=== PATIENT | female | born 1975 | race Caucasian/White ===

== ENCOUNTER 2016-10-06 18:47 | Emergency (ER) | payer MEDICARE, MEDICAID ==
[2016-10-06] MEDS ORDERED: LORazepam 2 MG/ML MDV IM ONE (19:56)
[2016-10-06] MEDS ORDERED: Acetaminophen 325 MG Tab PO ONE (21:14)
[2016-10-06] MEDS: Ondansetron 4 MG Tab.DIS PO ONE ×2 (21:20→22:20)
--- NOTE | 2016-10-07 00:42 | EDM.PDOCBH ---
ED HPI GENERAL MEDICAL PROBLEM - General Chief Complaint: Behavioral/Psych Stated Complaint: WITHDRAWAL FROM ALCOHOL/FEELING SUICIDAL Time Seen by Provider: 10/06/16 19:54 Source of Information: Reports: Patient History Limitations: Reports: No Limitations - History of Present Illness INITIAL COMMENTS - FREE TEXT/NARRATIVE: This patient comes in complaining of depression and alcohol abuse. She has a long history of depression and is off of medications. She quit her job recently and after that started drinking more. She said that she drinks to help her feel less depressed and to ease the pain from her musculoskeletal issues she said she has fibromyalgia and Ellers Danlos syndrome she said that when she drinks it seems to help for a little while but then just makes her feel worse. Her last drink was yesterday. She's been hospitalized for mental issues in the past. She thinks she wants to go to detox. 2 days ago she was feeling really depressed and she was sitting with her boyfriend's gun on her lap and she was thinking about shooting herself. Her boyfriend took the gun away from her. She said she didn't do it because of her children. She had been drinking at that time. Presently she does not feel like she is suicidal. Presently she feels very shaky and wants help with this. She hasn't eaten in 2 days. 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 , Other OB/BYN History: hvp- leap procedure Musculoskeletal History: Reports: Connective Tissue Disease, Fibromyalgia Neurological History: Reports: Migraines Psychiatric History: Reports: Anxiety, Depression, Psych Hospitalization(s), PTSD, Suicidal Ideation Endocrine/Metabolic History: Reports: Obesity/BMI 30+ Hematologic History: Reports: Anemia - Infectious Disease History Infectious Disease History: Reports: C-Difficile - Past Surgical History HEENT Surgical History: Reports: Tonsillectomy Other HEENT Surgeries/Procedures: adnoids GI Surgical History: Reports: Bariatric Procedure Female Surgical History: Reports: Tubal Ligation, Other (See Below) Musculoskeletal Surgical History: Reports: Joint Replacement, Knee Replacement, Other (See Below) Social & Family History - Family History Family Medical History: Noncontributory - Tobacco Use Smoking Status *Q: Current Some Day Smoker Years of Tobacco use: 20 Packs/Tins Daily: 0 Used Tobacco, but Quit: No Second Hand Smoke Exposure: No - Caffeine Use Caffeine Use: Reports: Coffee, Soda, Tea Other Caffeine Use: not daily - Alcohol Use Days Per Week of Alcohol Use: 1 Number of Drinks Per Day: 1 Total Drinks Per Week: 1 Date of Last Drink: 10/05/16 - Recreational Drug Use Recreational Drug Use: No ED ROS GENERAL - Review of Systems Review Of Systems: See Below Constitutional: Reports: No Symptoms HEENT: Reports: No Symptoms Respiratory: Reports: No Symptoms Cardiovascular: Reports: No Symptoms Endocrine: Reports: No Symptoms GI/Abdominal: Reports: No Symptoms : Reports: Other (She thinks she might have a urinary tract infection) Musculoskeletal: Reports: No Symptoms Skin: Reports: No Symptoms Neurological: Reports: No Symptoms Psychiatric: Reports: Depression Hematologic/Lymphatic: Reports: No Symptoms Immunologic: Reports: No Symptoms ED EXAM, BEHAVIORAL HEALTH - Physical Exam Exam: See Below Exam Limited By: No Limitations General Appearance: Alert, Mild Distress (At times she becomes tearful), Obese Eye Exam: Bilateral Eye: Normal Inspection Ears: Normal External Exam Nose: Normal Inspection Throat/Mouth: Normal Inspection Head: Atraumatic Neck: Normal Inspection Respiratory/Chest: Lungs Clear Cardiovascular: Regular Rate, Rhythm, No Murmur GI/Abdominal: Soft, Non-Tender Back Exam: Normal Inspection Extremities: Normal Inspection Neurological: Alert, CN II-XII Intact, No Motor/Sensory Deficits Psychiatric: Depressed Mood Skin Exam: Warm, Dry COURSE, BEHAVIORAL HEALTH COMP - Course Vital Signs: Last Vital Signs Temp 37.2 C 10/07/16 00:34 Pulse 78 10/07/16 00:34 Resp 14 10/07/16 00:34 BP 111/69 10/07/16 00:34 Pulse Ox 100 10/07/16 00:34 Orders, Labs, Meds: Laboratory Tests 10/06/16 10/06/16 10/06/16 Range/Units 19:55 19:55 19:55 WBC 6.0 (4.5-11.0) K/uL RBC 4.36 (3.30-5.50) M/uL Hgb 10.2 L (12.0-15.0) g/dL Hct 33.2 L (36.0-48.0) % MCV 76 L (80-98) fL MCH 23 L (27-31) pg MCHC 31 L (32-36) % Plt Count 178 (150-400) K/uL Neut % (Auto) 77 H (36-66) % Lymph % (Auto) 11 L (24-44) % [place] % (Auto) 11 H (2-6) % Eos % (Auto) 0 L (2-4) % Baso % (Auto) 1 (0-1) % Sodium 136 L (140-148) mmol/L Potassium 3.8 (3.6-5.2) mmol/L Chloride 100 (100-108) mmol/L Carbon Dioxide 24 (21-32) mmol/L Anion Gap 15.8 H (5.0-14.0) mmol/L BUN 5 L (7-18) mg/dL Creatinine 0.7 (0.6-1.0) mg/dL Est Cr Clr Drug Dosing TNP Estimated GFR (MDRD) > 60 (>60) Glucose 77 (74-106) mg/dL Calcium 7.9 L (8.5-10.1) mg/dL Total Bilirubin 0.9 (0.2-1.0) mg/dL AST 104 H D (15-37) U/L ALT 59 D (12-78) U/L Alkaline Phosphatase 105 (46-116) U/L Total Protein 6.7 (6.4-8.2) g/dL Albumin 3.1 L (3.4-5.0) g/dL Globulin 3.6 H (2.3-3.5) g/dL Albumin/Globulin Ratio 0.9 L (1.2-2.2) Urine Color Urine Appearance Urine pH (4.5-8.0) Ur Specific Norris (1.008-1.030) Urine Protein (NEGATIVE) mg/dL Urine Glucose (UA) (NEGATIVE) mg/dL Urine Ketones (NEGATIVE) mg/dL Urine Occult Blood (NEGATIVE) Urine Nitrite (NEGATIVE) Urine Bilirubin (NEGATIVE) Urine Urobilinogen (NORMAL) mg/dL Ur Leukocyte Esterase (NEGATIVE) Urine RBC (0-5) Urine WBC (0-5) Ur Epithelial Cells Amorphous Sediment Urine Bacteria Urine Mucus Urine Opiates Screen (NEGATIVE) Ur Oxycodone Screen (NEGATIVE) Urine Methadone Screen (NEGATIVE) Ur Propoxyphene Screen (NEGATIVE) Ur Barbiturates Screen (NEGATIVE) Ur Tricyclics Screen (NEGATIVE) Ur Phencyclidine Scrn (NEGATIVE) Ur Amphetamine Screen (NEGATIVE) U Methamphetamines Scrn (NEGATIVE) Urine MDMA Screen (NEGATIVE) U Benzodiazepines Scrn (NEGATIVE) U Cocaine Metab Screen (NEGATIVE) U Marijuana (THC) Screen (NEGATIVE) Ethyl Alcohol 20 mg/dL 10/06/16 10/06/16 Range/Units 20:08 20:08 WBC (4.5-11.0) K/uL RBC (3.30-5.50) M/uL Hgb (12.0-15.0) g/dL Hct (36.0-48.0) % MCV (80-98) fL MCH (27-31) pg MCHC (32-36) % Plt Count (150-400) K/uL Neut % (Auto) (36-66) % Lymph % (Auto) (24-44) % [place] % (Auto) (2-6) % Eos % (Auto) (2-4) % Baso % (Auto) (0-1) % Sodium (140-148) mmol/L Potassium (3.6-5.2) mmol/L Chloride (100-108) mmol/L Carbon Dioxide (21-32) mmol/L Anion Gap (5.0-14.0) mmol/L BUN (7-18) mg/dL Creatinine (0.6-1.0) mg/dL Est Cr Clr Drug Dosing Estimated GFR (MDRD) (>60) Glucose (74-106) mg/dL Calcium (8.5-10.1) mg/dL Total Bilirubin (0.2-1.0) mg/dL AST (15-37) U/L ALT (12-78) U/L Alkaline Phosphatase (46-116) U/L Total Protein (6.4-8.2) g/dL Albumin (3.4-5.0) g/dL Globulin (2.3-3.5) g/dL Albumin/Globulin Ratio (1.2-2.2) Urine Color Yellow Urine Appearance Cloudy Urine pH 6.0 (4.5-8.0) Ur Specific Norris 1.020 (1.008-1.030) Urine Protein 30 H (NEGATIVE) mg/dL Urine Glucose (UA) Normal (NEGATIVE) mg/dL Urine Ketones 15 H (NEGATIVE) mg/dL Urine Occult Blood Moderate (NEGATIVE) Urine Nitrite Negative (NEGATIVE) Urine Bilirubin Negative (NEGATIVE) Urine Urobilinogen 1 (NORMAL) mg/dL Ur Leukocyte Esterase Negative (NEGATIVE) Urine RBC 5-10 H (0-5) Urine WBC 5-10 H (0-5) Ur Epithelial Cells Moderate Amorphous Sediment Few Urine Bacteria Rare Urine Mucus Few Urine Opiates Screen Negative (NEGATIVE) Ur Oxycodone Screen Negative (NEGATIVE) Urine Methadone Screen Negative (NEGATIVE) Ur Propoxyphene Screen Negative (NEGATIVE) Ur Barbiturates Screen Negative (NEGATIVE) Ur Tricyclics Screen Negative (NEGATIVE) Ur Phencyclidine Scrn Negative (NEGATIVE) Ur Amphetamine Screen Negative (NEGATIVE) U Methamphetamines Scrn Negative (NEGATIVE) Urine MDMA Screen Negative (NEGATIVE) U Benzodiazepines Scrn Negative (NEGATIVE) U Cocaine Metab Screen Negative (NEGATIVE) U Marijuana (THC) Screen Negative (NEGATIVE) Ethyl Alcohol mg/dL Medications Discontinued Medications Generic Name Dose Route Start Last Admin Trade Name Joe PRN Reason Stop Dose Admin Acetaminophen 650 mg 10/06/16 21:14 10/06/16 21:21 Tylenol PO 10/06/16 21:15 650 mg NOW ONE Administration Lorazepam 2 mg 10/06/16 19:56 10/06/16 20:07 Ativan IM 10/06/16 19:57 2 mg ONETIME ONE Administration Ondansetron HCl 8 mg 10/06/16 21:15 10/06/16 22:20 Zofran Odt PO 10/06/16 21:16 Not Given ONETIME ONE Re-Assessment/Re-Exam: See the crisis counselor's evaluation. The counselor felt like she warranted inpatient hospitalization. The patient is willing to go voluntarily so 72 hour hold was not completed Departure - Departure Time of Disposition: 00:44 Disposition: DC/Tfer to Psych Hosp/Unit 65 Clinical Impression: Depressive disorder, Alcohol abuse - Discharge Information Referrals: Adeola Brunner PA [Primary Care Provider] - Forms: ED Department Discharge
[2016-10-07] MEDS ORDERED: Acetaminophen 325 MG Tab PO PRN (02:37)
[2016-10-07 07:51] VITALS: BP 89/55
== END 2016-10-07 09:11 ==
LOC: JP.ED 18:47
DX: F32.9 Major depressive disorder, single episode, unspecified (principal); F10.10 Alcohol abuse, uncomplicated; Z88.2 Allergy status to sulfonamides; Z88.8 Allergy status to other drugs, medicaments and biological substances; F41.9 Anxiety disorder, unspecified; F17.210 Nicotine dependence, cigarettes, uncomplicated; E66.9 Obesity, unspecified; Z68.38 Body mass index [BMI] 38.0-38.9, adult; Z98.51 Tubal ligation status; Z96.659 Presence of unspecified artificial knee joint; Z98.84 Bariatric surgery status; Z98.890 Other specified postprocedural states
CPT/HCPCS: 36415; 80053; 80305; 81001; 85025; 96372; 99285; A9270; G0480; J2060; 99284

== ENCOUNTER 2016-12-12 21:39 | Emergency (ER) | payer MEDICARE, MEDICAID ==
[2016-12-12 22:12] VITALS: BP 121/80
[2016-12-12] MEDS ORDERED: Ondansetron 4 MG/2 ML SDV IVPUSH ONE (22:33)
[2016-12-12] MEDS ORDERED: HYDROmorphone 0.5 MG/0.5 ML Syringe IVPUSH ONE (22:33)
--- NOTE | 2016-12-12 22:43 | EDM.PDOC ---
<Mireya Jeffries - Last Filed: 12/12/16 23:01> ED HPI GENERAL MEDICAL PROBLEM - General Chief Complaint: ENT Problem Stated Complaint: RED FACE SWOLLEN Time Seen by Provider: 12/12/16 22:20 Source of Information: Reports: Patient History Limitations: Reports: No Limitations - History of Present Illness INITIAL COMMENTS - FREE TEXT/NARRATIVE: Gwen presents today with complaints of worsening right upper dental pain, nausea , dry heaves, fever, chills, facial swelling, warmth and edema that started today. She reports taking clindamycin 300mg PO three times a day for three days for dental abscess along with ibuprofen and acetaminophen. 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 , Other OB/BYN History: hvp- leap procedure Musculoskeletal History: Reports: Connective Tissue Disease, Fibromyalgia Neurological History: Reports: Migraines Psychiatric History: Reports: Anxiety, Depression, Psych Hospitalization(s), PTSD, Suicidal Ideation Endocrine/Metabolic History: Reports: Obesity/BMI 30+ Hematologic History: Reports: Anemia - Infectious Disease History Infectious Disease History: Reports: Chicken Pox - Past Surgical History HEENT Surgical History: Reports: Tonsillectomy Other HEENT Surgeries/Procedures: adnoids GI Surgical History: Reports: Bariatric Procedure Female Surgical History: Reports: Tubal Ligation, Other (See Below) Musculoskeletal Surgical History: Reports: Joint Replacement, Knee Replacement, Other (See Below) Social & Family History - Family History Family Medical History: Noncontributory - Tobacco Use Smoking Status *Q: Never Smoker Years of Tobacco use: 20 Packs/Tins Daily: 0 Used Tobacco, but Quit: No Second Hand Smoke Exposure: No - Caffeine Use Caffeine Use: Reports: Coffee, Soda, Tea Other Caffeine Use: not daily - Alcohol Use Days Per Week of Alcohol Use: 1 Number of Drinks Per Day: 3 Total Drinks Per Week: 3 - Recreational Drug Use Recreational Drug Use: No ED ROS ENT - Review of Systems Review Of Systems: See Below Constitutional: Reports: Fever, Chills, Decreased Appetite. Denies: Weakness HEENT: Reports: Dental Pain. Denies: Ear Discharge, Ear Pain, Eye Discharge, Eye Pain, Rhinitis, Sinus Problem, Throat Pain, Throat Swelling Respiratory: Denies: Shortness of Breath, Wheezing, Cough, Sputum, Hemoptysis Cardiovascular: Reports: No Symptoms Endocrine: Reports: No Symptoms GI/Abdominal: Reports: Decreased Appetite, Nausea. Denies: Black Stool, Bloody Stool, Constipation, Diarrhea, Difficulty Swallowing, Vomiting : Reports: No Symptoms Musculoskeletal: Reports: No Symptoms Skin: Reports: Erythema, Other (edema to right face) Neurological: Denies: Headache, Numbness, Tingling, Weakness Psychiatric: Reports: No Symptoms Hematologic/Lymphatic: Reports: No Symptoms Immunologic: Reports: No Symptoms ED EXAM, ENT - Physical Exam Exam: See Below Text/Narrative:: Gwen is a 41 year old presenting tonight for worsening dental pain, edema and erythema to right face, nausea, fever and chills despite current use of cindaycin 300mg PO three times a day. She reports taking antibiotic for 3 days. She was also in to see the dentist, however they were not able to pull remaining tooth or do a root canal. Gwen also reports taking acetaminophen and ibuprofen for pain without much relief. Exam Limited By: No Limitations General Appearance: Alert, WD/WN, Moderate Distress Eye Exam: Bilateral Eye: EOMI, Normal Inspection, PERRL Ears: Normal External Exam, Normal Canal, Hearing Grossly Normal, Normal TMs Nose: Normal Inspection, Normal Mucousa, No Blood Mouth/Throat: Dental Abcess, Dental Pain, Gum Swelling, Other (edema and tenderness to right upper gums at #5,4,3. Erythema, edema, tenderness to right cheek. Fluctuance noted to right inner cheek along upper gum line/buccal puch. ). No: Tongue Swelling, Tonsillar Erythema, Tonsillar Swelling, Uvular Deviation, Uvular Edema Head: Atraumatic, Normocephalic, Facial Swelling, Facial Tenderness, Other (as noted above.) Neck: Normal Inspection, Supple, Non-Tender, Full Range of Motion Respiratory/Chest: No Respiratory Distress, Lungs Clear, Normal Breath Sounds, No Accessory Muscle Use, Chest Non-Tender Cardiovascular: Normal Peripheral Pulses, Regular Rate, Rhythm, No Edema, No Murmur Back: Normal Inspection, Full Range of Motion. No: CVA Tenderness (R), CVA Tenderness (L) Extremities: Normal Inspection, Normal Range of Motion, Non-Tender, No Pedal Edema, Normal Capillary Refill Neurological: Alert, Oriented, CN II-XII Intact, Normal Cognition, Normal Gait, No Motor/Sensory Deficits Psychiatric: Normal Affect, Normal Mood Skin: Erythema, Increased Warmth, Other (redness of right cheek. ) Lymphatic: No Adenopathy Course - Vital Signs Last Recorded V/S: Last Vital Signs Temp 35.9 C 12/12/16 22:12 Pulse 92 12/12/16 22:12 Resp 16 12/12/16 22:12 BP 121/80 12/12/16 22:12 Pulse Ox 99 12/12/16 22:12 - Orders/Labs/Meds Orders: Active Orders 24 hr Category Date Time Status Max Facial Sinus w Cont [CT] Stat Exams 12/12/16 22:56 Taken Sodium Chloride 0.9% [Normal Saline] 1,000 ml Med 12/12/16 23:15 Active IV ASDIRECTED Sodium Chloride 0.9% [Saline Flush] Med 12/12/16 22:33 Active 10 ml FLUSH ASDIRECTED PRN Sodium Chloride 0.9% [Saline Flush] Med 12/12/16 23:25 Active 10 ml FLUSH ONETIME PRN metroNIDAZOLE Med 12/13/16 00:51 Once 500 mg PO ONETIME ONE Saline Lock Insert [OM.PC] Routine Oth 12/12/16 22:33 Ordered Medication Orders Sodium Chloride (Normal Saline) 1,000 mls @ 999 mls/hr IV ASDIRECTED ANDRE Last Admin: 12/12/16 23:17 Dose: 999 mls/hr Sodium Chloride (Saline Flush) 10 ml FLUSH ASDIRECTED PRN PRN Reason: Keep Vein Open Last Admin: 12/12/16 22:56 Dose: 10 ml Admin: 12/12/16 22:53 Dose: 10 ml Admin: 12/12/16 22:52 Dose: 10 ml Sodium Chloride (Saline Flush) 10 ml FLUSH ONETIME PRN PRN Reason: PER RADIOLOGY PROTOCOL Last Admin: 12/12/16 23:39 Dose: 10 ml Labs: Laboratory Tests 12/12/16 12/12/16 12/12/16 Range/Units 22:43 22:43 22:43 WBC 10.5 (4.5-11.0) K/uL RBC 4.42 (3.30-5.50) M/uL Hgb 10.4 L (12.0-15.0) g/dL Hct 33.6 L (36.0-48.0) % MCV 76 L (80-98) fL MCH 24 L (27-31) pg MCHC 31 L (32-36) % Plt Count 241 (150-400) K/uL Neut % (Auto) 77 H (36-66) % Lymph % (Auto) 12 L (24-44) % George % (Auto) 10 H (2-6) % Eos % (Auto) 1 L (2-4) % Baso % (Auto) 0 (0-1) % ESR (0-25) mm/hr Sodium 127 L (140-148) mmol/L Potassium 3.7 (3.6-5.2) mmol/L Chloride 92 L (100-108) mmol/L Carbon Dioxide 24 (21-32) mmol/L Anion Gap 14.7 H (5.0-14.0) mmol/L BUN 6 L (7-18) mg/dL Creatinine 0.6 (0.6-1.0) mg/dL Est Cr Clr Drug Dosing TNP Estimated GFR (MDRD) > 60 (>60) Glucose 92 (74-106) mg/dL Lactic Acid 1.3 (0.4-2.0) mmol/L Calcium 8.6 (8.5-10.1) mg/dL Total Bilirubin 1.1 H (0.2-1.0) mg/dL AST 37 (15-37) U/L ALT 30 (12-78) U/L Alkaline Phosphatase 101 (46-116) U/L C-Reactive Protein 0.84 H (0.0-0.3) mg/dL Total Protein 7.6 (6.4-8.2) g/dL Albumin 3.8 (3.4-5.0) g/dL Globulin 3.8 H (2.3-3.5) g/dL Albumin/Globulin Ratio 1.0 L (1.2-2.2) 12/12/16 Range/Units 22:43 WBC (4.5-11.0) K/uL RBC (3.30-5.50) M/uL Hgb (12.0-15.0) g/dL Hct (36.0-48.0) % MCV (80-98) fL MCH (27-31) pg MCHC (32-36) % Plt Count (150-400) K/uL Neut % (Auto) (36-66) % Lymph % (Auto) (24-44) % George % (Auto) (2-6) % Eos % (Auto) (2-4) % Baso % (Auto) (0-1) % ESR 16 (0-25) mm/hr Sodium (140-148) mmol/L Potassium (3.6-5.2) mmol/L Chloride (100-108) mmol/L Carbon Dioxide (21-32) mmol/L Anion Gap (5.0-14.0) mmol/L BUN (7-18) mg/dL Creatinine (0.6-1.0) mg/dL Est Cr Clr Drug Dosing Estimated GFR (MDRD) (>60) Glucose (74-106) mg/dL Lactic Acid (0.4-2.0) mmol/L Calcium (8.5-10.1) mg/dL Total Bilirubin (0.2-1.0) mg/dL AST (15-37) U/L ALT (12-78) U/L Alkaline Phosphatase (46-116) U/L C-Reactive Protein (0.0-0.3) mg/dL Total Protein (6.4-8.2) g/dL Albumin (3.4-5.0) g/dL Globulin (2.3-3.5) g/dL Albumin/Globulin Ratio (1.2-2.2) Meds: Medications Generic Name Dose Route Start Last Admin Trade Name Freq PRN Reason Stop Dose Admin Sodium Chloride 1,000 mls @ 999 mls/hr 12/12/16 23:15 12/12/16 23:17 Normal Saline IV 999 mls/hr ASDIRECTED ANDRE Administration Sodium Chloride 10 ml 12/12/16 22:33 12/12/16 22:56 Saline Flush FLUSH 10 ml ASDIRECTED PRN Administration Keep Vein Open Sodium Chloride 10 ml 12/12/16 23:25 12/12/16 23:39 Saline Flush FLUSH 10 ml ONETIME PRN Administration PER RADIOLOGY PROTOCOL Discontinued Medications Generic Name Dose Route Start Last Admin Trade Name Freq PRN Reason Stop Dose Admin Hydromorphone HCl 0.5 mg 12/12/16 22:33 12/12/16 22:54 Dilaudid IVPUSH 12/12/16 22:34 0.5 mg ONETIME ONE Administration Hydromorphone HCl 1 mg 12/12/16 23:06 12/12/16 23:21 Dilaudid IVPUSH 12/12/16 23:07 1 mg ONETIME ONE Administration Vancomycin HCl 1 gm/ Sodium 250 mls @ 150 mls/hr 12/12/16 23:06 Chloride IV 12/13/16 00:45 ONETIME ONE Metronidazole 500 mg/ Premix 100 mls @ 100 mls/hr 12/12/16 23:16 IV 12/13/16 00:15 ONETIME ONE Sodium Chloride 75 mls @ 3 mls/sec 12/12/16 23:25 12/12/16 23:38 Normal Saline IV 12/12/16 23:26 3 mls/sec ONETIME ONE Administration Iopamidol 100 ml 12/12/16 23:25 12/12/16 23:39 Isovue-300 (61%) IV 100 ml . DIRECTED PRN Administration RADIOLOGY EXAM Ondansetron HCl 4 mg 12/12/16 22:33 12/12/16 22:52 Zofran IVPUSH 12/12/16 22:34 4 mg ONETIME ONE Administration - Re-Assessments/Exams Free Text/Narrative Re-Assessment/Exam: 12/12/16 23:01 Discussed case with Brianna Vazquez CNP who will resume care. Patient will have a CT with contrast to determine if surgical intervention is needed. Departure - Departure Disposition: Home, Self-Care Clinical Impression: Dental abscess, Facial cellulitis - Discharge Information Referrals: Adeola Brunner PA [Primary Care Provider] - Forms: ED Department Discharge Care Plan Goals: Facial Cellulitis Dental Abscess tooth #2 -will plan to discharge to home, returning to ER for IV Vancomycin x 3 doses. -follow up with Dental on Wednesday -home meds; Flaygl po tid x 7 days, -pain control; hydrocodone 5-325mg 1-2 tabs po every 4-6 hours prn pain. return to clinic or er sooner for worsen pain, facial swelling, redness, nausea , vomiting or any concerns. - My Orders Last 24 Hours: My Active Orders 12/12/16 23:15 Sodium Chloride 0.9% [Normal Saline] 1,000 ml IV ASDIRECTED 12/12/16 23:25 Sodium Chloride 0.9% [Saline Flush] 10 ml FLUSH ONETIME PRN 12/13/16 00:51 metroNIDAZOLE 500 mg PO ONETIME ONE - Assessment/Plan Last 24 Hours: My Active Orders 12/12/16 23:15 Sodium Chloride 0.9% [Normal Saline] 1,000 ml IV ASDIRECTED 12/12/16 23:25 Sodium Chloride 0.9% [Saline Flush] 10 ml FLUSH ONETIME PRN 12/13/16 00:51 metroNIDAZOLE 500 mg PO ONETIME ONE <Rekha Simmons - Last Filed: 12/13/16 01:02> Course - Re-Assessments/Exams Free Text/Narrative Re-Assessment/Exam: 12/13/16 00:55 CT maxillofacial ; impression; soft tissue swelling and subcutaneous edema seen over the right face involving the buccal and malar regions. no definite fluid collections seen on to suggest a facial abscess. amall periodontal abscess is seen surrounding the root of tooth 2. given IV Vancomycin 1 gram given PO Flagyl 500mg will plan to discharge to home, returning to ER for IV Vancomycin x 3 doses, follow up with Dental on Wednesday home meds; Flaygl po tid x 7 days, hydrocodone 5-325mg 1-2 tabs po every 4-6 hours prn pain. Departure - Departure Time of Disposition: 00:59 - Problem List & Annotations (1) Dental abscess SNOMED Code(s): 362452786 Code(s): K04.7 - PERIAPICAL ABSCESS WITHOUT SINUS Status: Acute Priority : High Current Visit: Yes (2) Facial cellulitis SNOMED Code(s): 994061890 Code(s): L03.211 - CELLULITIS OF FACE Status: Acute Priority: High Current Visit: Yes - Problem List Review Problem List Initiated/Reviewed/Updated: Yes - Assessment/Plan Plan: Facial Cellulitis Dental Abscess tooth #2 -will plan to discharge to home, returning to ER for IV Vancomycin x 3 doses. -follow up with Dental on Wednesday -home meds; Flaygl po tid x 7 days, -pain control; hydrocodone 5-325mg 1-2 tabs po every 4-6 hours prn pain. return to clinic or er sooner for worsen pain, facial swelling, redness, nausea , vomiting or any concerns.
[2016-12-12] MEDS: Sodium Chloride 0.9% 10 ML Syringe FLUSH PRN ×3 (22:52→22:56)
[2016-12-12] MEDS ORDERED: HYDROmorphone 1 MG/ML Syringe IVPUSH ONE (23:06)
[2016-12-12] MEDS ORDERED: Sodium Chloride 0.9% 1,000 ML IV SCH (23:15)
[2016-12-12] MEDS ORDERED: metroNIDAZOLE/Normal Saline 500 MG in Premix Bag 1 BAG IV ONE (23:16)
[2016-12-12] MEDS ORDERED: Sodium Chloride 0.9% 10 ML Syringe FLUSH PRN (23:25)
[2016-12-12] MEDS ORDERED: Iopamidol 612 MG/ML 100 ML Bottle IV PRN (23:25)
[2016-12-12] MEDS ORDERED: Sodium Chloride 0.9% 75 ML IV ONE (23:25)
[2016-12-13] MEDS ORDERED: metroNIDAZOLE 250 MG Tab PO ONE (00:51)
== END 2016-12-13 01:49 | disposition home or self-care (01) ==
LOC: JP.ED 21:39
DX: K04.7 Periapical abscess without sinus (principal); L03.211 Cellulitis of face; Z88.2 Allergy status to sulfonamides; Z88.1 Allergy status to other antibiotic agents
CPT/HCPCS: 36415; 70487; 80053; 83605; 85025; 85651; 86140; 96365; 96366; 96375; 99284; A9270; J1170; J2405; J3370; J7030; J7040; J7050; Q9967

== ENCOUNTER 2017-01-27 17:12 | Emergency (ER) | payer MEDICARE, MEDICAID ==
[2017-01-27 17:23] VITALS: BP 123/74
[2017-01-27] MEDS ORDERED: Sodium Chloride 0.9% 10 ML Syringe FLUSH PRN (17:38)
[2017-01-27] MEDS ORDERED: diphenhydrAMINE 50 MG/ML SDV IVPUSH ONE (17:38)
[2017-01-27] MEDS ORDERED: Prochlorperazine 10 MG/2 ML SDV IVPUSH ONE (17:38)
[2017-01-27] MEDS ORDERED: Ketorolac 30 MG/ML SDV IVPUSH ONE (17:38)
--- NOTE | 2017-01-27 17:43 | EDM.PDOC ---
<OfficerGeovanni - Last Filed: 01/27/17 17:39> ED HPI GENERAL MEDICAL PROBLEM - General Chief Complaint: Cardiovascular Problem Stated Complaint: HEADACHE/HEART FEELS FUNNY Time Seen by Provider: 01/27/17 17:33 Source of Information: Reports: Patient, RN Notes Reviewed History Limitations: Reports: No Limitations - History of Present Illness INITIAL COMMENTS - FREE TEXT/NARRATIVE: 41-year-old female presents emergency department today complaint of headache, she does have a history of migraines she states this was slightly different she did have some palpitations did not have her usual aura has nausea no phonophobia she does have photophobia Head Pain Score (Numeric/FACES): 5 - Related Data Allergies Allergy/AdvReac Type Severity Reaction Status Date / Time cefaclor [From Ceclor] Allergy Hives Verified 01/27/17 17:23 Sulfa (Sulfonamide Allergy Hives Verified 01/27/17 17:23 Antibiotics) Home Meds: Home Meds Clindamycin HCl 300 mg PO TID 12/12/16 [History] Past Medical History Cardiovascular History: Reports: Arrhythmia Genitourinary History: Reports: Pyelonephritis, Other (See Below) Other Genitourinary History: recent pylonephritis [employer]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: Reports: Ectopic , Other OB/BYN History: hvp- leap procedure Musculoskeletal History: Reports: Connective Tissue Disease, Fibromyalgia Neurological History: Reports: Migraines Psychiatric History: Reports: Anxiety, Depression, Psych Hospitalization(s), PTSD, Suicidal Ideation Endocrine/Metabolic History: Reports: Obesity/BMI 30+ Hematologic History: Reports: Anemia - Infectious Disease History Infectious Disease History: Reports: Chicken Pox - Past Surgical History HEENT Surgical History: Reports: Tonsillectomy Other HEENT Surgeries/Procedures: adnoids GI Surgical History: Reports: Bariatric Procedure Female Surgical History: Reports: Tubal Ligation, Other (See Below) Musculoskeletal Surgical History: Reports: Joint Replacement, Knee Replacement, Other (See Below) Social & Family History - Family History Family Medical History: Noncontributory - Tobacco Use Smoking Status *Q: Unknown Ever Smoked Years of Tobacco use: 20 Packs/Tins Daily: 0 Used Tobacco, but Quit: No Second Hand Smoke Exposure: No - Caffeine Use Caffeine Use: Reports: Coffee, Soda, Tea Other Caffeine Use: not daily - Alcohol Use Days Per Week of Alcohol Use: 1 Number of Drinks Per Day: 3 Total Drinks Per Week: 3 - Recreational Drug Use Recreational Drug Use: No ED ROS GENERAL - Review of Systems Review Of Systems: See Below Constitutional: Reports: No Symptoms HEENT: Reports: No Symptoms Respiratory: Reports: No Symptoms Cardiovascular: Reports: No Symptoms GI/Abdominal: Reports: Nausea : Reports: No Symptoms Musculoskeletal: Reports: No Symptoms Skin: Reports: No Symptoms Neurological: Reports: Headache ED EXAM, GENERAL - Physical Exam Exam: See Below Exam Limited By: No Limitations General Appearance: Alert, WD/WN, No Apparent Distress Eye Exam: Bilateral Eye: Normal Fundi, Normal Inspection Ears: Normal External Exam, Normal Canal, Hearing Grossly Normal, Normal TMs Nose: Normal Inspection, Normal Mucosa, No Blood Throat/Mouth: Normal Inspection, Normal Lips, Normal Teeth, Normal Gums, Normal Oropharynx, Normal Voice, No Airway Compromise Head: Atraumatic, Normocephalic Neck: Normal Inspection, Supple, Non-Tender, Full Range of Motion Respiratory/Chest: No Respiratory Distress, Lungs Clear, Normal Breath Sounds, No Accessory Muscle Use Cardiovascular: Regular Rate, Rhythm, No Murmur Course - Vital Signs Last Recorded V/S: Last Vital Signs Temp 98.8 F 01/27/17 17:19 Pulse 81 01/27/17 17:19 Resp 15 01/27/17 17:19 BP 123/74 01/27/17 17:19 Pulse Ox 100 01/27/17 17:19 - Orders/Labs/Meds Orders: Active Orders 24 hr Category Date Time Status EKG Documentation Completion [RC] ASDIRECTED Care 01/27/17 17:44 Active Peripheral IV Care [RC] . DIRECTED Care 01/27/17 17:39 Active Peripheral IV Insertion Adult [OM.PC] Urgent Oth 01/27/17 17:38 Ordered EKG 12 Lead [EK] Stat Ther 01/27/17 17:44 Ordered Meds: Medications Discontinued Medications Generic Name Dose Route Start Last Admin Trade Name Freq PRN Reason Stop Dose Admin Diphenhydramine HCl 25 mg 01/27/17 17:38 01/27/17 17:53 Benadryl IVPUSH 01/27/17 17:39 25 mg ONETIME ONE Administration Sodium Chloride 1,000 mls @ 999 mls/hr 01/27/17 17:45 01/27/17 17:53 Normal Saline IV 999 mls/hr ASDIRECTED ANDRE Administration Ketorolac Tromethamine 30 mg 01/27/17 17:38 01/27/17 17:55 Toradol IVPUSH 01/27/17 17:39 30 mg ONETIME ONE Administration Prochlorperazine Edisylate 5 mg 01/27/17 17:38 01/27/17 17:54 Compazine IVPUSH 01/27/17 17:39 5 mg ONETIME ONE Administration Sodium Chloride 10 ml 01/27/17 17:38 01/27/17 17:55 Saline Flush FLUSH 10 ml ASDIRECTED PRN Administration Keep Vein Open Departure - Departure Disposition: Home, Self-Care 01 Clinical Impression: Migraine Qualifiers: Migraine type: without aura Status migrainosus presence: without status migrainosus Intractability: not intractable Qualified Code(s): G43.009 - Migraine without aura, not intractable, without status migrainosus Instructions: Migraine Headache, [id number] Referrals: PCP,None [Primary Care Provider] - Forms: ED Department Discharge Care Plan Goals: Rest this evening, increase diet and activity as tolerated. Recheck in the next 24-48 hours if not improving satisfactorily. <Aquiles Coats - Last Filed: 01/27/17 19:55> Course - Re-Assessments/Exams Free Text/Narrative Re-Assessment/Exam: 01/27/17 18:36 Patient seen and evaluated by Officer. Treatment initiated with medications and IV fluid. Patient had good improvement of her symptoms after the treatment, will be discharged with no further therapy necessary. Departure - Departure Time of Disposition: 18:46 Condition: Good
[2017-01-27] MEDS ORDERED: Sodium Chloride 0.9% 1,000 ML IV SCH (17:45)
== END 2017-01-27 18:48 | disposition home or self-care (01) ==
LOC: JP.ED 17:12
DX: G43.009 Migraine without aura, not intractable, without status migrainosus (principal); Z88.2 Allergy status to sulfonamides; Z88.1 Allergy status to other antibiotic agents
CPT/HCPCS: 93005; 96361; 96374; 96375; 99284; J0780; J1200; J1885; J7040; J7050; 93010

== ENCOUNTER 2017-02-02 10:05 | Emergency (ER) | payer MEDICARE, MEDICAID ==
[2017-02-02 17:09] VITALS: BP 130/88
--- NOTE | 2017-02-03 08:47 | LETTER ---
02/02/2017 Floyd [address] [place] [address] RE: FLOYD MAURO SULAIMAN : 1975 Dear Floyd, You recently were at the emergency room at the hospital and found to have a hemoglobin of 10. An iron level was checked and that was found to be very low at 23, and your percent of saturation was 5.3 with normal being 20 to 55. At this point, you need to definitely get on a vitamin high in iron and get some extra iron in your diet. If you have questions, feel free to contact me. Sincerely, /[phone]
--- NOTE | 2017-02-03 08:55 | US ---
Transvaginal Non OB, Pelvis Non OB Comp HISTORY: Menorrhagia Transabdominal and transvaginal technique were used during the exam. FINDINGS: The uterus appears within normal limits in size and echogenicity measuring 8.0 x 4.0 x 5.9 cm. No rosina rine mass is identified. Endometrial stripe is thickened measuring 20 mm. Both ovaries are within normal limits in size and echogenicity. The right ovary measures 4.0 x 3.1 x 2.6 cm. Left ovary measures 3.6 x 1.8 x 2.0 cm. Cysts versus dominant follicles are seen on the on th e right ovary. The largest measures 2.4 x 2.0 x 1.7 cm in size. No other adnexal or other pelvic mass or abnormal fluid collections are seen. There is good color Doppler blood flow to each ovary. No ranjit e fluid is seen in the cul-de-sac. IMPRESSION: 1. Thickened endometrium. No other uterine abnormalities identified. 2. A couple of cysts versus dominant follicles are noted on the right ovary. Follow-up in approximate ly 2 months is recommended to reevaluate.
== END 2017-02-02 17:11 | disposition home or self-care (01) ==
LOC: JP.ED 10:05
DX: R93.8 Abnormal findings on diagnostic imaging of other specified body structures (principal); Z88.2 Allergy status to sulfonamides; Z88.1 Allergy status to other antibiotic agents
CPT/HCPCS: 36415; 76830; 76830-26; 76856; 76856-26; 80053; 81025; 83550; 85025; 99283; 99284-25

== ENCOUNTER 2017-05-20 11:37 | Inpatient (IN) | payer MEDICARE, MEDICAID ==
[2017-05-20] MEDS ORDERED: HYDROmorphone 0.5 MG/0.5 ML Syringe IVPUSH ONE ×2 (12:09→13:20)
[2017-05-20] MEDS ORDERED: Ondansetron 4 MG/2 ML SDV IVPUSH ONE ×2 (12:09→13:42)
--- NOTE | 2017-05-20 12:11 | EDM.PDOC ---
ED HPI GENERAL MEDICAL PROBLEM - General Chief Complaint: Abdominal Pain Stated Complaint: RT ABD PAIN/YELLOWISH SKIN Time Seen by Provider: 05/20/17 12:10 Source of Information: Reports: Patient History Limitations: Reports: No Limitations - History of Present Illness INITIAL COMMENTS - FREE TEXT/NARRATIVE: pt arrived with rt upper abdomanal pain. She has been doing alot of vomiting. She has had some problems for a couple of days. Onset: Gradual, Other (last 2 days. ) Duration: Day(s):, Getting Worse Location: Reports: Abdomen, Other (pain in rt upper abdoman. She hs noted that her urine looks cloudy and has been smelly. 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 OB/BYN History: hvp- leap procedure Musculoskeletal History: Reports: Connective Tissue Disease, Fibromyalgia Neurological History: Reports: Migraines Psychiatric History: Reports: Anxiety, Depression, Psych Hospitalization(s), PTSD, Suicidal Ideation Endocrine/Metabolic History: Reports: Obesity/BMI 30+ Hematologic History: Reports: Anemia - Infectious Disease History Infectious Disease History: Reports: Chicken Pox - Past Surgical History HEENT Surgical History: Reports: Tonsillectomy Other HEENT Surgeries/Procedures: adnoids GI Surgical History: Reports: Bariatric Procedure Female Surgical History: Reports: Tubal Ligation, Other (See Below) Musculoskeletal Surgical History: Reports: Joint Replacement, Knee Replacement, Other (See Below) Social & Family History - Family History Family Medical History: Noncontributory - Tobacco Use Smoking Status *Q: Never Smoker Years of Tobacco use: 20 Packs/Tins Daily: 0 Used Tobacco, but Quit: No Second Hand Smoke Exposure: No - Caffeine Use Caffeine Use: Reports: Coffee, Soda, Tea Other Caffeine Use: not daily - Alcohol Use Days Per Week of Alcohol Use: 1 Number of Drinks Per Day: 3 Total Drinks Per Week: 3 - Recreational Drug Use Recreational Drug Use: No ED ROS GENERAL - Review of Systems Review Of Systems: See Below Constitutional: Reports: Chills, Malaise, Decreased Appetite HEENT: Reports: No Symptoms Respiratory: Reports: No Symptoms Cardiovascular: Reports: No Symptoms Endocrine: Reports: No Symptoms GI/Abdominal: Reports: Abdominal Pain, Decreased Appetite, Nausea, Vomiting : Reports: Other (urine looks very cloudy. ) Musculoskeletal: Reports: No Symptoms Neurological: Reports: No Symptoms Psychiatric: Reports: No Symptoms ED EXAM, GI/ABD - Physical Exam Exam: See Below Text/Narrative:: pt arrived with pain in the rt upper abdoman. She has been vomiting for the past 1.5 days. Exam Limited By: No Limitations General Appearance: Alert, Moderate Distress, Other ( rt upper abdomanal pain. ) Ears: Normal TMs Nose: Normal Inspection Throat/Mouth: Normal Inspection Head: Atraumatic Neck: Normal Inspection Respiratory/Chest: No Respiratory Distress Cardiovascular: Regular Rate, Rhythm GI/Abdominal Exam: Other (pt is very tender in the rt upper abdoman. No CVA tenderness. ) (Female) Exam: Deferred, Other (pt did have a uterine ablation) Rectal (Female) Exam: Deferred Back Exam: Normal Inspection Extremities: Normal Inspection Neurological: Alert, Oriented, Normal Cognition Psychiatric: Normal Affect Course - Vital Signs Last Recorded V/S: Last Vital Signs Temp 36.4 C 05/20/17 12:27 Pulse 101 H 05/20/17 12:27 Resp 18 05/20/17 12:27 BP 115/63 05/20/17 13:38 Pulse Ox 98 05/20/17 12:27 - Orders/Labs/Meds Orders: Active Orders 24 hr Category Date Time Status CULTURE URINE [RM] Stat Lab 05/20/17 12:48 Received UA W/MICROSCOPIC [URIN] Urgent Lab 05/20/17 12:23 Ordered Sodium Chloride 0.9% [Normal Saline] 1,000 ml Med 05/20/17 12:15 Active IV ASDIRECTED Sodium Chloride 0.9% [Normal Saline] 1,000 ml Med 05/20/17 12:45 Active IV ASDIRECTED Medication Orders Sodium Chloride (Normal Saline) 1,000 mls @ 999 mls/hr IV ASDIRECTED ANDRE Last Admin: 05/20/17 12:24 Dose: 999 mls/hr Sodium Chloride (Normal Saline) 1,000 mls @ 999 mls/hr IV ASDIRECTED ANDRE Last Admin: 05/20/17 13:24 Dose: 999 mls/hr Labs: Laboratory Tests 05/20/17 05/20/17 05/20/17 Range/Units 12:23 12:23 12:23 WBC 4.8 (4.5-11.0) K/uL RBC 4.62 (3.30-5.50) M/uL Hgb 10.9 L (12.0-15.0) g/dL Hct 35.0 L (36.0-48.0) % MCV 76 L (80-98) fL MCH 24 L (27-31) pg MCHC 31 L (32-36) % Plt Count 227 (150-400) K/uL Neut % (Auto) 67 H (36-66) % Lymph % (Auto) 18 L (24-44) % Rains % (Auto) 13 H (2-6) % Eos % (Auto) 1 L (2-4) % Baso % (Auto) 1 (0-1) % Sodium (140-148) mmol/L Potassium (3.6-5.2) mmol/L Chloride (100-108) mmol/L Carbon Dioxide (21-32) mmol/L Anion Gap (5.0-14.0) mmol/L BUN (7-18) mg/dL Creatinine (0.6-1.0) mg/dL Est Cr Clr Drug Dosing mL/min Estimated GFR (MDRD) (>60) Glucose (74-106) mg/dL Calcium (8.5-10.1) mg/dL Total Bilirubin (0.2-1.0) mg/dL AST (15-37) U/L ALT (12-78) U/L Alkaline Phosphatase (46-116) U/L Total Protein (6.4-8.2) g/dL Albumin (3.4-5.0) g/dL Globulin (2.3-3.5) g/dL Albumin/Globulin Ratio (1.2-2.2) Lipase 214 (73-393) U/L Urine Color Yellow Urine Appearance Cloudy Urine pH 5.0 (4.5-8.0) Ur Specific Devens 1.025 (1.008-1.030) Urine Protein 30 H (NEGATIVE) mg/dL Urine Glucose (UA) Normal (NEGATIVE) mg/dL Urine Ketones 15 H (NEGATIVE) mg/dL Urine Occult Blood Moderate (NEGATIVE) Urine Nitrite Negative (NEGATIVE) Urine Bilirubin Small (NEGATIVE) Urine Urobilinogen 4 (NORMAL) mg/dL Ur Leukocyte Esterase Large (NEGATIVE) Urine RBC 5-10 H (0-5) Urine WBC 40-50 H (0-5) Ur Epithelial Cells Moderate Amorphous Sediment Not seen Urine Bacteria Moderate Urine Mucus Rare 05/20/17 Range/Units 12:23 WBC (4.5-11.0) K/uL RBC (3.30-5.50) M/uL Hgb (12.0-15.0) g/dL Hct (36.0-48.0) % MCV (80-98) fL MCH (27-31) pg MCHC (32-36) % Plt Count (150-400) K/uL Neut % (Auto) (36-66) % Lymph % (Auto) (24-44) % Rains % (Auto) (2-6) % Eos % (Auto) (2-4) % Baso % (Auto) (0-1) % Sodium 137 L (140-148) mmol/L Potassium 3.3 L (3.6-5.2) mmol/L Chloride 98 L (100-108) mmol/L Carbon Dioxide 23 (21-32) mmol/L Anion Gap 19.3 H (5.0-14.0) mmol/L BUN 5 L (7-18) mg/dL Creatinine 0.8 (0.6-1.0) mg/dL Est Cr Clr Drug Dosing 92.41 mL/min Estimated GFR (MDRD) > 60 (>60) Glucose 83 (74-106) mg/dL Calcium 8.6 (8.5-10.1) mg/dL Total Bilirubin 0.7 (0.2-1.0) mg/dL AST 141 H D (15-37) U/L ALT 44 D (12-78) U/L Alkaline Phosphatase 70 (46-116) U/L Total Protein 7.7 (6.4-8.2) g/dL Albumin 4.1 (3.4-5.0) g/dL Globulin 3.6 H (2.3-3.5) g/dL Albumin/Globulin Ratio 1.1 L (1.2-2.2) Lipase (73-393) U/L Urine Color Urine Appearance Urine pH (4.5-8.0) Ur Specific Devens (1.008-1.030) Urine Protein (NEGATIVE) mg/dL Urine Glucose (UA) (NEGATIVE) mg/dL Urine Ketones (NEGATIVE) mg/dL Urine Occult Blood (NEGATIVE) Urine Nitrite (NEGATIVE) Urine Bilirubin (NEGATIVE) Urine Urobilinogen (NORMAL) mg/dL Ur Leukocyte Esterase (NEGATIVE) Urine RBC (0-5) Urine WBC (0-5) Ur Epithelial Cells Amorphous Sediment Urine Bacteria Urine Mucus Meds: Medications Generic Name Dose Route Start Last Admin Trade Name Freq PRN Reason Stop Dose Admin Sodium Chloride 1,000 mls @ 999 mls/hr 05/20/17 12:15 05/20/17 12:24 Normal Saline IV 999 mls/hr ASDIRECTED ANDRE Administration Sodium Chloride 1,000 mls @ 999 mls/hr 05/20/17 12:45 05/20/17 13:24 Normal Saline IV 999 mls/hr ASDIRECTED ANDRE Administration Discontinued Medications Generic Name Dose Route Start Last Admin Trade Name Freq PRN Reason Stop Dose Admin Fluconazole 100 mg 05/20/17 14:34 Diflucan PO 05/20/17 14:35 ONETIME ONE Hydromorphone HCl 0.5 mg 05/20/17 12:09 05/20/17 12:24 Dilaudid IVPUSH 05/20/17 12:10 0.5 mg ONETIME ONE Administration Hydromorphone HCl 0.5 mg 05/20/17 13:20 05/20/17 13:27 Dilaudid IVPUSH 05/20/17 13:21 0.5 mg ONETIME ONE Administration Levofloxacin/Dextrose 500 mg/ 100 mls @ 100 mls/hr 05/20/17 13:21 05/20/17 13 :29 Premix IV 05/20/17 14:20 100 mls/hr ONETIME ONE Administration Lorazepam 0.5 mg 05/20/17 14:07 05/20/17 14:16 Ativan IVPUSH 05/20/17 14:08 0.5 mg ONETIME ONE Administration Metoclopramide HCl 10 mg 05/20/17 14:33 05/20/17 14:38 Reglan IVPUSH 05/20/17 14:34 10 mg ONETIME ONE Administration Ondansetron HCl 4 mg 05/20/17 12:09 05/20/17 12:23 Zofran IVPUSH 05/20/17 12:10 4 mg ONETIME ONE Administration Ondansetron HCl 4 mg 05/20/17 13:42 05/20/17 13:49 Zofran IVPUSH 05/20/17 13:43 4 mg ONETIME ONE Administration - Re-Assessments/Exams Free Text/Narrative Re-Assessment/Exam: 05/20/17 13:28 urine appears very infected. Her sgot is elevated. Her Us shows a large distended gb There are 2 0r 3 small stones present with some sludge. Her urine was cultured. Pt was given levoquin 500mg iv. 05/20/17 14:41 Pt continues to be nauseated and is wretching and vomiting. She is rating her pain at a 5-6. Departure - Departure Time of Disposition: 14:42 Disposition: Admitted As Inpatient 65 Condition: Fair Clinical Impression: Abdominal pain, Cholestasis, Dehydration, UTI (urinary tract infection) - Discharge Information Referrals: Adeola Brunner PA [Primary Care Provider] - Forms: ED Department Discharge Care Plan Goals: admit to Dr pena - My Orders Last 24 Hours: My Active Orders 05/20/17 12:15 Sodium Chloride 0.9% [Normal Saline] 1,000 ml IV ASDIRECTED 05/20/17 12:23 UA W/MICROSCOPIC [URIN] Urgent 05/20/17 12:45 Sodium Chloride 0.9% [Normal Saline] 1,000 ml IV ASDIRECTED 05/20/17 12:48 CULTURE URINE [RM] Stat - Assessment/Plan Last 24 Hours: My Active Orders 05/20/17 12:15 Sodium Chloride 0.9% [Normal Saline] 1,000 ml IV ASDIRECTED 05/20/17 12:23 UA W/MICROSCOPIC [URIN] Urgent 05/20/17 12:45 Sodium Chloride 0.9% [Normal Saline] 1,000 ml IV ASDIRECTED 05/20/17 12:48 CULTURE URINE [RM] Stat
[2017-05-20] MEDS ORDERED: Sodium Chloride 0.9% 1,000 ML IV SCH ×2 (12:15→12:45)
[2017-05-20] MEDS ORDERED: Levofloxacin/Dextrose 5%-Water 500 MG in Premix Bag 1 BAG IV ONE (13:21)
--- NOTE | 2017-05-20 13:23 | US ---
Abdomen Ltd HISTORY: rt upper abdominal pain. FINDINGS: Echogenicity of liver appears increased diffusely suggesting possible fatty infiltration. No other fo ingrid hepatic parenchymal abnormality identified. Gallbladder is distended measuring 12.9 cm in length. A small amount of sludge and 2 tiny gallstones can be seen in the dependent portion of the gallbladd er. There is no gallbladder wall thickening or pericholecystic fluid. Sonographic Vines sign is nega tive. Gallbladder wall thickness measures 2.9 mm. There is no pericholecystic fluid. Biliary ducts ar e not dilated. Common bile duct measures 4.6 mm in diameter. Head and body of the pancreas appears within normal limits in size and echogenicity with no mass or a bnormal fluid collections. Tail of the pancreas is obscured by bowel gas. Right kidney is within norm al limits in size and echogenicity with no mass or hydronephrosis. The right kidney measures 9.3 cm i n length. Inferior vena cava is unremarkable. Normal hepatopedal flow is seen in the portal vein. IMPRESSION: 1. Distended gallbladder. Cholelithiasis. A small amount of sludge and 2 tiny gallstones are seen in the dependent portion of the gallbladder. No definite signs of acute cholecystitis or biliary obstruc tion. 2. Possible fatty infiltration of the liver. 3. No sonographic abnormality of the right upper quadrant is identified. Tail of the pancreas is obsc ured by bowel gas and could not be imaged. Report was called to Dr. Rubio in image department at 1315 hours.
[2017-05-20] MEDS ORDERED: LORazepam 2 MG/ML SDV IVPUSH ONE (14:07)
[2017-05-20] MEDS ORDERED: Metoclopramide 10 MG/2 ML SDV IVPUSH ONE (14:33)
[2017-05-20] MEDS ORDERED: Fluconazole 100 MG Tab PO ONE (14:34)
--- NOTE | 2017-05-20 15:45 | PCM.HP ---
H&P History of Present Illness - General Date of Service: 05/20/17 Admit Problem/Dx: Admission Diagnosis/Problem Admission Diagnosis/Problem Cholecystitis Source of Information: Patient, Provider, RN Notes Reviewed History Limitations: Reports: No Limitations - History of Present Illness Initial Comments - Free Text/Narative: Ms. Pascual is a 41-year-old woman who is admitted through the emergency department with nausea vomiting and abdominal pain secondary to cholecystitis. Over the past several months she has noted intermittent episodes of right upper quadrant abdominal pain. These episodes do seem to occur related to having eaten a higher fat meal. Now over the past 2 days has developed recurrent episodes of abdominal pain which seemed to follow eating and are associated with nausea vomiting. Symptoms have been very severe over the past 24 hours and she presented to the emergency department this morning for further evaluation. White blood cell count has been normal and she is been afebrile with stable vital signs. Despite interventions in the emergency department she has had persistent nausea and vomiting. Abdominal ultrasound was obtained and shows evidence of a enlarged distended gallbladder with stones, there was no evidence of significant gallbladder wall thickening or ductal dilatation. Liver tests are normal other than an elevation in AST at 140. Urinalysis shows evidence of a concurrent urinary tract infection, urine culture has been obtained. 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 , Other OB/BYN History: hvp- leap procedure Musculoskeletal History: Reports: Connective Tissue Disease, Fibromyalgia, Other (See Below) (Jessica Danlos Syndrome) Neurological History: Reports: Migraines Psychiatric History: Reports: Anxiety, Depression, Psych Hospitalization(s), PTSD, Suicidal Ideation Endocrine/Metabolic History: Reports: Obesity/BMI 30+ Hematologic History: Reports: Anemia - Infectious Disease History Infectious Disease History: Reports: Chicken Pox - Past Surgical History HEENT Surgical History: Reports: Tonsillectomy Other HEENT Surgeries/Procedures: adnoids GI Surgical History: Reports: Bariatric Procedure Female Surgical History: Reports: Tubal Ligation, Other (See Below) Musculoskeletal Surgical History: Reports: Joint Replacement, Knee Replacement, Other (See Below) Social & Family History - Family History Family Medical History: Noncontributory - Tobacco Use Smoking Status *Q: Never Smoker Years of Tobacco use: 20 Packs/Tins Daily: 0 Used Tobacco, but Quit: No Second Hand Smoke Exposure: No - Caffeine Use Caffeine Use: Reports: Coffee, Soda, Tea Other Caffeine Use: not daily - Alcohol Use Days Per Week of Alcohol Use: 1 Number of Drinks Per Day: 3 Total Drinks Per Week: 3 - Recreational Drug Use Recreational Drug Use: No H&P Review of Systems - Review of Systems: Review Of Systems: See Below General: Reports: Chills, Malaise, Weakness, Diaphoresis. Denies: Fever HEENT: Reports: No Symptoms Pulmonary: Reports: No Symptoms Cardiovascular: Reports: No Symptoms Gastrointestinal: Reports: Abdominal Pain, Decreased Appetite, Distension, Nausea, Vomiting. Denies: Constipation, Diarrhea, Difficulty Swallowing Genitourinary: Reports: Dysuria, Frequency, Burning, Urgency. 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 No: Mucosa Moist & [place] Neck: Supple, Trachea Midline, +2 Carotid Pulse wo Bruit Lungs: Clear to Auscultation, Normal Respiratory Effort Cardiovascular: Regular Rate, Regular Rhythm, Normal S1, Normal S2, Systolic Murmur. No: Diastolic Murmur GI/Abdominal Exam: Soft, Non-Tender, No Organomegaly, No Distention Back Exam: Normal Inspection, Full Range of Motion Extremities: Non-Tender, No Pedal Edema Skin: Warm, Dry, Intact Neurological: Cranial Nerves Intact, Strength Equal Bilateral, Normal Speech, Normal Tone, Sensation Intact. No: Focal Deficit Neuro Extensive - Mental Status: Alert, Oriented x3, Normal Mood/Affect, Normal Cognition, Memory Intact - Patient Data Lab Results Last 24 hrs: Laboratory Results - last 24 hr 05/20/17 05/20/17 05/20/17 Range/Units 12:23 12:23 12:23 WBC 4.8 (4.5-11.0) K/uL RBC 4.62 (3.30-5.50) M/uL Hgb 10.9 L (12.0-15.0) g/dL Hct 35.0 L (36.0-48.0) % MCV 76 L (80-98) fL MCH 24 L (27-31) pg MCHC 31 L (32-36) % Plt Count 227 (150-400) K/uL Neut % (Auto) 67 H (36-66) % Lymph % (Auto) 18 L (24-44) % Butts % (Auto) 13 H (2-6) % Eos % (Auto) 1 L (2-4) % Baso % (Auto) 1 (0-1) % Sodium (140-148) mmol/L Potassium (3.6-5.2) mmol/L Chloride (100-108) mmol/L Carbon Dioxide (21-32) mmol/L Anion Gap (5.0-14.0) mmol/L BUN (7-18) mg/dL Creatinine (0.6-1.0) mg/dL Est Cr Clr Drug Dosing mL/min Estimated GFR (MDRD) (>60) Glucose (74-106) mg/dL Calcium (8.5-10.1) mg/dL Total Bilirubin (0.2-1.0) mg/dL AST (15-37) U/L ALT (12-78) U/L Alkaline Phosphatase (46-116) U/L Total Protein (6.4-8.2) g/dL Albumin (3.4-5.0) g/dL Globulin (2.3-3.5) g/dL Albumin/Globulin Ratio (1.2-2.2) Lipase 214 (73-393) U/L Urine Color Yellow Urine Appearance Cloudy Urine pH 5.0 (4.5-8.0) Ur Specific [place] 1.025 (1.008-1.030) Urine Protein 30 H (NEGATIVE) mg/dL Urine Glucose (UA) Normal (NEGATIVE) mg/dL Urine Ketones 15 H (NEGATIVE) mg/dL Urine Occult Blood Moderate (NEGATIVE) Urine Nitrite Negative (NEGATIVE) Urine Bilirubin Small (NEGATIVE) Urine Urobilinogen 4 (NORMAL) mg/dL Ur Leukocyte Esterase Large (NEGATIVE) Urine RBC 5-10 H (0-5) Urine WBC 40-50 H (0-5) Ur Epithelial Cells Moderate Amorphous Sediment Not seen Urine Bacteria Moderate Urine Mucus Rare 05/20/17 Range/Units 12:23 WBC (4.5-11.0) K/uL RBC (3.30-5.50) M/uL Hgb (12.0-15.0) g/dL Hct (36.0-48.0) % MCV (80-98) fL MCH (27-31) pg MCHC (32-36) % Plt Count (150-400) K/uL Neut % (Auto) (36-66) % Lymph % (Auto) (24-44) % Butts % (Auto) (2-6) % Eos % (Auto) (2-4) % Baso % (Auto) (0-1) % Sodium 137 L (140-148) mmol/L Potassium 3.3 L (3.6-5.2) mmol/L Chloride 98 L (100-108) mmol/L Carbon Dioxide 23 (21-32) mmol/L Anion Gap 19.3 H (5.0-14.0) mmol/L BUN 5 L (7-18) mg/dL Creatinine 0.8 (0.6-1.0) mg/dL Est Cr Clr Drug Dosing 92.41 mL/min Estimated GFR (MDRD) > 60 (>60) Glucose 83 (74-106) mg/dL Calcium 8.6 (8.5-10.1) mg/dL Total Bilirubin 0.7 (0.2-1.0) mg/dL AST 141 H D (15-37) U/L ALT 44 D (12-78) U/L Alkaline Phosphatase 70 (46-116) U/L Total Protein 7.7 (6.4-8.2) g/dL Albumin 4.1 (3.4-5.0) g/dL Globulin 3.6 H (2.3-3.5) g/dL Albumin/Globulin Ratio 1.1 L (1.2-2.2) Lipase (73-393) U/L Urine Color Urine Appearance Urine pH (4.5-8.0) Ur Specific [place] (1.008-1.030) Urine Protein (NEGATIVE) mg/dL Urine Glucose (UA) (NEGATIVE) mg/dL Urine Ketones (NEGATIVE) mg/dL Urine Occult Blood (NEGATIVE) Urine Nitrite (NEGATIVE) Urine Bilirubin (NEGATIVE) Urine Urobilinogen (NORMAL) mg/dL Ur Leukocyte Esterase (NEGATIVE) Urine RBC (0-5) Urine WBC (0-5) Ur Epithelial Cells Amorphous Sediment Urine Bacteria Urine Mucus Result Diagrams: 05/20/17 12:23 05/20/17 12:23 *Q Meaningful Use (ADM) - VTE *Q VTE Pharmacological Contraindications *Q: Patient Scheduled Surgery - VTE Risk Assess *Q Each Risk Factor Represents 1 Point: Age 41 - 59 years, Obesity ( BMI > 25 kg/m2 ) Total Score 1 Point Risk Factors: 2 Each Risk Factor Represents 2 Points: Laparoscopic surgery greater than 45 minutes Total Score 2 Point Risk Factors: 2 Each Risk Factor Represents 3 Points: None Total Score 3 Point Risk Factors: 0 Each Risk Factor Represents 5 Points: None Total Score 5 Point Risk Factors: 0 Venous Thromboembolism Risk Factor Score *Q: 4 Problem List Initiated/Reviewed/Updated: Yes Orders Last 24hrs: Active Orders 24 hr Category Date Time Status Patient Status Manage Transfer [TRANSFER] Routine ADT 05/20/17 15:28 Ordered CULTURE URINE [RM] Stat Lab 05/20/17 12:48 Received UA W/MICROSCOPIC [URIN] Urgent Lab 05/20/17 12:23 Ordered Sodium Chloride 0.9% [Normal Saline] 1,000 ml Med 05/20/17 12:15 Active IV ASDIRECTED Sodium Chloride 0.9% [Normal Saline] 1,000 ml Med 05/20/17 12:45 Active IV ASDIRECTED Resuscitation Status Routine Resus Stat 05/20/17 15:30 Ordered Medication Orders Sodium Chloride (Normal Saline) 1,000 mls @ 999 mls/hr IV ASDIRECTED ANDRE Last Admin: 05/20/17 12:24 Dose: 999 mls/hr Sodium Chloride (Normal Saline) 1,000 mls @ 999 mls/hr IV ASDIRECTED [facility] Last Admin: 05/20/17 13:24 Dose: 999 mls/hr Assessment/Plan Comment:: ASSESSMENT AND PLAN ACUTE CHOLECYSTITIS-chronic and recent symptoms as well as physical examination are consistent with acute cholecystitis. She has had severe pain with nausea and vomiting over the past 24 hours, resulting in dehydration. -IV fluids for hydration -anti-emetic therapy as needed -Pain medication as needed -Unasyn 1.5 g IV every 6 hours - consult Dr. Jeffers for surgical opinion in a.. 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 At the time of this admission I do not reasonably expected evaluation and management of this problem will require more than a 96 hour hospital stay. DISPOSITION-anticipate discharge to home after the hospital stay. PRIMARY CARE PROVIDER-Cheryl Brunner
[2017-05-20] MEDS ORDERED: Ondansetron 4 MG/2 ML SDV IV PRN (16:11)
[2017-05-20] MEDS ORDERED: Lactated Ringers 1,000 ML IV SCH ×2 (16:11→21:45)
[2017-05-20] MEDS ORDERED: Sodium Chloride 0.9% 10 ML Syringe FLUSH PRN (16:11)
[2017-05-20] MEDS ORDERED: Acetaminophen 325 MG Tab PO PRN (16:11)
[2017-05-20] MEDS: LORazepam 2 MG/ML SDV IV PRN ×2 (16:30→19:43)
[2017-05-20] MEDS: HYDROmorphone 0.5 MG/0.5 ML Syringe IVPUSH PRN ×3 (16:30→22:02)
[2017-05-20] MEDS: Pantoprazole 40 MG Vial IVPUSH SCH (17:28)
[2017-05-20] MEDS: Ampicillin/Sulbactam Na 1.5 GM in Sodium Chloride 0.9% 50 ML IV SCH (17:28)
[2017-05-20] MEDS ORDERED: Sodium Ferric Gluconate Cmplex 250 MG in Sodium Chloride 0.9% 100 ML IV ONE (18:08)
[2017-05-21] MEDS: Ampicillin/Sulbactam Na 1.5 GM in Sodium Chloride 0.9% 50 ML IV SCH ×4 (00:43→22:30)
[2017-05-21] MEDS: LORazepam 2 MG/ML SDV IV PRN (02:28)
[2017-05-21] MEDS: HYDROmorphone 0.5 MG/0.5 ML Syringe IVPUSH PRN ×3 (02:29→13:44)
[2017-05-21] MEDS ORDERED: Potassium Chloride 40 MEQ in Premix Bag 1 BAG IV ONE (07:54)
[2017-05-21] MEDS ORDERED: Dextrose 5%-Lactated Ringers 1,000 ML IV SCH (08:00)
[2017-05-21] MEDS: Magnesium Sulfate/Water 2 GM in Premix Bag 1 BAG IV SCH ×3 (09:20→19:39)
[2017-05-21] MEDS: Potassium Chloride 20 MEQ, Lidocaine 1% 2 ML in Sodium Chloride 0.9% 100 ML IV SCH ×2 (10:02→12:17)
--- NOTE | 2017-05-21 11:21 | CONS ---
DATE OF SERVICE: 05/21/2017 REFERRING PHYSICIAN: CONSULTING PHYSICIAN: Jess Thomas PA-C HISTORY OF PRESENT ILLNESS: Gwen is a 41-year-old female with cholecystitis, and is a consult from Dr. Veto Olivarez. Gwen has had right upper quadrant pain associated with nausea and vomiting, which started three days ago, the pain is gradually increased. She has had no appetite. States the urine was dark. She presented to the emergency room after she had a complete workup and an ultrasound did show evidence of an enlarged distended gallbladder with stones, had significant gallbladder wall thickening. Liver function tests were normal with the exception of AST 140. She was admitted on 05/20/2017 for IV hydration and pain control. She has been n.p.o. since midnight. ALLERGIES: TO CECLOR, SULFA. PAST MEDICAL HISTORY: Cardiac arrhythmia, pyelonephritis, connective tissue disease, fibromyalgia, Jessica-Danlos syndrome, migraine headaches, anxiety, depression, has had some psychiatric hospitalizations, PTSD, history of suicidal ideation. PAST SURGICAL HISTORY: Tonsillectomy and adenoidectomy. She had a Adela-en-Y gastric bypass surgery in [place] area, tubal ligation, has had knee replacement. FAMILY HISTORY: Noncontributory. SOCIAL HISTORY: Does not smoke. Drinks coffee, soda, and tea. Alcohol, drinks 3 drinks once weekly and no recreational drugs. REVIEW OF SYSTEMS: GENERAL: Denies any fever, chills, night sweats, or fatigue. HEENT: No headache, dizziness, loss of coordination. CARDIOVASCULAR: No chest pain, shortness of breath, fast or irregular heart beat. LUNGS: No cough. GI: Reports right upper quadrant abdominal pain, radiates straight through her back and around to her right upper quadrant. Some abdominal distention, nausea, vomiting. Denies any constipation, diarrhea, or dysphagia. : Has urinary frequency, burning, and urgency. MUSCULOSKELETAL: Has chronic joint and muscle pain. SKIN: Without rash. PSYCHIATRIC: Negative for any acute symptoms. NEUROLOGICAL: Negative for headaches. Remainder of review of systems is negative for any pertinent positives and negatives. OBJECTIVE: GENERAL: Gwen Pascual is a 41-year-old female. VITAL SIGNS: Height is 5 feet 8 inches, weight is 250 pounds. TPR is 98.8, 97, 14, blood pressure 154/88. HEENT: Negative. NECK: Supple. HEART: Regular rate and rhythm. LUNGS: Clear. ABDOMEN: Tenderness in the right upper quadrant. EXTREMITIES: Without peripheral edema. NEUROLOGICAL: Cranial nerves II through XII intact. SKIN: Without rash. PSYCHIATRIC: Mood and affect appropriate. ASSESSMENT: Acute cholecystitis. PLAN: Schedule and have consent signed for laparoscopic, possible laparotomy, cholecystectomy, general anesthesia with TAP block. Karthikeyan Jeffers MD, case to follow 05/20/2017, Azactam 1 g brush fabrication supervisor to OR, remain n.p.o., Dilaudid PLANTING MATERIAL CARRIER was started. We will evaluate p.r.n. and postop orders to be written after surgery. Jess Thomas PA-C /[id number]
[2017-05-21] MEDS ORDERED: Ropivacaine 56 ML, Dexamethasone 8 MG, EPINEPHrine 0.4 MG, Sodium Chloride 0.9% 21.6 ML NERVRT SCH ×4 (12:00)
[2017-05-21] MEDS ORDERED: Aztreonam/Dextrose-Water 1 GM in Premix Bag 1 BAG IV ONE (12:00)
[2017-05-21] MEDS ORDERED: Ketamine 500 MG/5 ML MDV IV SCH (12:00)
[2017-05-21] MEDS ORDERED: Midazolam 1 MG/ML 2 ML SDV ONE (14:08)
[2017-05-21] MEDS ORDERED: fentaNYL 250 MCG/5 ML SDV ONE (14:08)
[2017-05-21] MEDS ORDERED: Rocuronium 50 MG/5 ML Vial ONE ×2 (14:30→17:37)
[2017-05-21] MEDS ORDERED: Sodium Ferric Gluconate Cmplex 250 MG in Sodium Chloride 0.9% 100 ML IV ONE ×3 (16:00→20:00)
[2017-05-21] MEDS ORDERED: Glycopyrrolate 0.2 MG/ML 5 ML MDV ONE (17:37)
[2017-05-21] MEDS ORDERED: Neostigmine Methylsulfate 1 MG/ML 5 ML Syringe ONE (17:37)
[2017-05-21] MEDS ORDERED: Ondansetron 4 MG/2 ML SDV ONE (17:37)
[2017-05-21] MEDS ORDERED: Propofol 200 MG/20 ML SDV ONE (17:37)
[2017-05-21] MEDS ORDERED: Dexamethasone 4 MG/ML SDV ONE (17:37)
[2017-05-21] MEDS: Ampicillin/Sulbactam Na 1.5 GM in Sodium Chloride 0.9% 50 ML IV ONE ×2 (17:45→19:10)
[2017-05-21] MEDS ORDERED: HYDROmorphone 1 MG/ML Syringe IVPUSH ONE (18:37)
[2017-05-21] MEDS: hydrOXYzine HCl 100 MG/2 ML SDV IM ONE ×2 (19:27→19:28)
[2017-05-21] MEDS ORDERED: Naloxone 0.4 MG/ML SDV IV PRN (19:35)
[2017-05-21] MEDS ORDERED: HYDROmorphone/Normal Saline 15 MG/30 ML PCA IV PRN (19:35)
[2017-05-21] MEDS: Pantoprazole 40 MG Vial IVPUSH SCH (19:39)
[2017-05-21] MEDS ORDERED: LORazepam 1 MG Tab PO PRN (19:42)
[2017-05-21] MEDS ORDERED: Cyanocobalamin (Vitamin B12) 1,000 MCG/ML SDV IM ONE (20:00)
[2017-05-21] MEDS: Dextrose 5%-Lact Ringers w/KCl 1,000 ML IV SCH (23:17)
[2017-05-22] MEDS: Ampicillin/Sulbactam Na 1.5 GM in Sodium Chloride 0.9% 50 ML IV SCH ×4 (04:10→23:13)
[2017-05-22] MEDS: Dextrose 5%-Lact Ringers w/KCl 1,000 ML IV SCH (09:52)
[2017-05-22] MEDS ORDERED: Sodium Ferric Gluconate Cmplex 250 MG in Sodium Chloride 0.9% 100 ML IV ONE (10:00)
[2017-05-22] MEDS: Acetaminophen/HYDROcodone 325-5 MG Tab PO PRN ×3 (15:31→23:21)
[2017-05-22] MEDS: Pantoprazole 40 MG Vial IVPUSH SCH (17:40)
[2017-05-23] MEDS: Acetaminophen/HYDROcodone 325-5 MG Tab PO PRN ×2 (03:26→08:06)
[2017-05-23] MEDS: Ampicillin/Sulbactam Na 1.5 GM in Sodium Chloride 0.9% 50 ML IV SCH (04:20)
[2017-05-23 07:14] VITALS: BP 129/96
--- NOTE | 2017-05-23 11:42 | DISCH ---
FINAL DIAGNOSES: 1. Subacute cholecystitis and cholelithiasis with pericholecystic abscess. 2. Enlarged jj hepatis lymph node. 3. Bariatric surgery status. 4. Anxiety and depression. 5. History of opioid use agreement. 6. History of migraine headaches. OPERATIVE PROCEDURE: Done on 05/21/2017, diagnostic laparoscopy with: 1. Cholecystectomy. 2. Drainage of pericholecystic abscess. 3. Excision of jj hepatis lymph node. SUMMARY: This is a 41-year-old presenting with a picture of an acute cholecystitis. After admission and initiation of antibiotics, the patient underwent a diagnostic laparoscopy. At that time, she was noted to have a markedly enlarged and edematous gallbladder consistent with subacute or acute cholecystitis, and upon removal was noted to have multiple small stones. The patient did have an inflammatory fluid collection posterior to the gallbladder. Cultures of this are growing out a gram-negative juan pablo with the final cultures still pending. As this was reconfirmed, this was in fact an abscess. She also had enlarged jj hepatis lymph node which was excised for diagnostic purposes. Postoperatively, the patient has had no major problems. We kept her 1 additional day for IV antibiotics and better pain control, and at the time of discharge will be following up with Jess Thomas at [facility] on 05/31/2017. MEDICATIONS ON DISCHARGE: Include the previously used Flexeril. She will be instructed to continue or restart her vitamins and other bariatric surgery associated supplements and also Levaquin 500 mg p.o. daily x5 days; [place] 5/325, 1 to 2 tablets q.4 hours p.r.n. pain, #40.
--- NOTE | 2017-05-23 17:06 | PN ---
DATE OF SERVICE: 05/22/2017 The patient is status post laparoscopic cholecystectomy along with drainage of pericholecystic abscess and biopsy of an enlarged jj hepatis lymph node yesterday. She has not really advanced much in the way of diet as well as on IV pain medication. We will try to hold her discharge for today and most likely get her home tomorrow. We will switch her over to [place] as tolerated during the day today. The pain looks good and labs also look satisfactory. Karthikeyan Jeffers MD /[id number]
--- NOTE | 2017-05-27 14:29 | OR ---
DATE OF PROCEDURE: 05/21/2017 PREOPERATIVE DIAGNOSIS: Subacute cholecystitis and cholelithiasis. POSTOPERATIVE DIAGNOSES: 1. Subacute cholecystitis and cholelithiasis. 2. Pericholecystic abscess/inflammatory fluid collection. 3. Enlarged jj hepatis lymph node. OPERATIVE PROCEDURES: Diagnostic laparoscopy with: 1. Cholecystectomy (52161). 2. Drainage of pericholecystic abscess (36522). 3. Excision of jj hepatis lymph node ([id number]). ANESTHESIA: General. ASSISTANT PROFESSOR OF CRIMINAL JUSTICE: Jess Thomas PA-C. INDICATION FOR PROCEDURE: This is a 41-year-old presenting with an acute cholecystitis-type picture. She was admitted overnight with IV antibiotics and is to undergo a cholecystectomy at this time. Potential risks including bleeding, infection, injury to underlying viscera, possible migration of stones in the common bile duct, or possible cardiopulmonary, septic, or hemorrhagic complications leading to were discussed, and the patient wishes to proceed. DETAILS OF PROCEDURE: The patient was taken to the operating room. After general endotracheal anesthesia was induced, the abdomen was prepped and draped, a transverse epigastric incision was made. The peritoneal cavity entered under direct vision with an Optiview trocar inflated to 15 mmHg pressure with CO2. Laparoscope was then reinserted. No underlying trocar insertion site injuries were seen. Following this, a 12 mm subumbilical trocar was placed along with a single 5 mm right abdominal trocar, and general exploration was undertaken. The patient was noted to have a markedly distended gallbladder, which was reddened and quite edematous consistent with a subacute cholecystitis. As one elevated the gallbladder there is a hazy inflammatory fluid collection with localized peritonitis in that area. Cultures of this were obtained which subsequently on Gram stain did show organisms within the fluid collection. The patient also had a significant enlarged jj hepatis lymph node. The latter was then excised. This thing came out somewhat in a piecemeal manner through the trocars as it was extremely friable and was sent for histologic evaluation. At this point after drainage of the pericholecystic abscess or inflammatory fluid collection, the dissection began on the gallbladder neck with the Harmonic scalpel and continued around the gallbladder neck-cystic duct junction. Once those areas were defined, as well as adjacent cystic artery, both structures were clipped 3 times proximally and once distally and divided. The gallbladder was then dissected off the gallbladder bed using Harmonic scalpel and delivered through the epigastric trocar site containing numerous friable black stones. The area of dissection was inspected. No bleeding or other problems were noted. A Alex- Alvarado drain was taken out through the right lateral trocar site, placed in the area of the gallbladder bed and abscess cavity. The trocars were then sequentially removed. The fascia at the 12 mm site was closed with 0 Vicryl stitch and the skin with 4-0 Vicryl skin stitch. Dressing was applied. The patient was taken to the recovery room in satisfactory condition. Physician syrup mixer assistant, Jess Thomas, played an essential role in assisting in this case, helping to position the patient, retract structures as needed, as well as suturing and cutting sutures when indicated. Her presence improved patient's safety and decreased operative time. Karthikeyan Jeffers MD /[id number]
== END 2017-05-23 10:44 | disposition home or self-care (01) | DRG 418 ==
LOC: JP.ED 11:37 → JP.MS 15:25
PROVIDERS: ADMIT Hospitalist; ATTEND Hospitalist
PROC: 0FT44ZZ Resection of Gallbladder, Percutaneous Endoscopic Approach (ICD-10-PCS; principal; 2017-05-21)
PROC: 07BC4ZX Excision of Pelvis Lymphatic, Percutaneous Endoscopic Approach, Diagnostic (ICD-10-PCS; 2017-05-21)
PROC: 0W9G4ZZ Drainage of Peritoneal Cavity, Percutaneous Endoscopic Approach (ICD-10-PCS; 2017-05-21)
DX: K80.00 Calculus of gallbladder with acute cholecystitis without obstruction (principal); Q79.6 Ehlers-Danlos syndromes; N39.0 Urinary tract infection, site not specified; R10.11 Right upper quadrant pain; R11.10 Vomiting, unspecified; E86.0 Dehydration; R59.0 Localized enlarged lymph nodes; D50.9 Iron deficiency anemia, unspecified; Z98.84 Bariatric surgery status; Z98.0 Intestinal bypass and anastomosis status; M79.7 Fibromyalgia; F32.9 Major depressive disorder, single episode, unspecified; F41.9 Anxiety disorder, unspecified; Z96.659 Presence of unspecified artificial knee joint; Z88.1 Allergy status to other antibiotic agents; Z88.2 Allergy status to sulfonamides; F11.11 Opioid abuse, in remission
CPT/HCPCS: 36415; 76705 ×2; 80053; 81001; 83550; 83690; 85025; 87086; 96361; 96365; 96375; 96376; 99285; J1170 ×2; J1956; J2060; J2405 ×2; J2765; J7040 ×2; 80048; 82728; 83735; 84100; 85027; 87070; 87075; 87077; 87186; 87205; 88304; 88305; 94762; A9270-GY; C9113; J0171; J0287; J1100; J2250; J2704; J2710; J2795; J2916; J3010; J3410; J3420; J3475; J3480; J3490; J7030; J7042; J7050; J7120

== ENCOUNTER 2017-11-05 07:45 | Emergency (ER) | payer MEDICARE, MEDICAID ==
[2017-11-05] MEDS ORDERED: Aspirin 81 MG Tab.Chew PO ONE (08:10)
[2017-11-05] MEDS ORDERED: Ketorolac 30 MG/ML SDV IM ONE (08:11)
--- NOTE | 2017-11-05 08:15 | EDM.PDOC ---
ED HPI GENERAL MEDICAL PROBLEM - General Chief Complaint: Chest Pain Stated Complaint: CHEST PAIN Time Seen by Provider: 11/05/17 08:05 Source of Information: Reports: Patient, RN Notes Reviewed History Limitations: Reports: No Limitations - History of Present Illness INITIAL COMMENTS - FREE TEXT/NARRATIVE: 42-year-old female presents to the emergency department today with complaint of chest pain, she states the pain is been ongoing for the last 24 hours is progressively gotten worse throughout the morning she states that she lays flat on her back the pain is tolerable. However any movement of her chest standing twisting sitting up exacerbates the pain to a 10 out of 10. She does have some nausea and some diaphoresis does not describe shortness of breath. 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 , 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 Musculoskeletal History: Reports: Connective Tissue Disease, Fibromyalgia, Other (See Below) Neurological History: Reports: Migraines Psychiatric History: Reports: Anxiety, Depression, Psych Hospitalization(s), PTSD, Suicidal Ideation Endocrine/Metabolic History: Reports: Obesity/BMI 30+ Hematologic History: Reports: Anemia - Infectious Disease History Infectious Disease History: Reports: Chicken Pox - Past Surgical History HEENT Surgical History: Reports: Tonsillectomy Other HEENT Surgeries/Procedures: adnoids GI Surgical History: Reports: Bariatric Procedure, Cholecystectomy Female Surgical History: Reports: Tubal Ligation, Other (See Below) Musculoskeletal Surgical History: Reports: Joint Replacement, Knee Replacement, Other (See Below) Social & Family History - Family History Family Medical History: Noncontributory - Tobacco Use Smoking Status *Q: Never Smoker - Caffeine Use Caffeine Use: Reports: None Other Caffeine Use: not daily - Recreational Drug Use Recreational Drug Use: No ED ROS GENERAL - Review of Systems Review Of Systems: See Below Constitutional: Reports: Chills, Diaphoresis HEENT: Reports: No Symptoms Respiratory: Reports: No Symptoms Cardiovascular: Reports: Chest Pain GI/Abdominal: Reports: Nausea. Denies: Abdominal Pain, Vomiting : Reports: No Symptoms Musculoskeletal: Reports: No Symptoms Skin: Reports: No Symptoms Neurological: Reports: No Symptoms ED EXAM, GENERAL - Physical Exam Exam: See Below Free Text/Narrative:: General: Female, not in any distress, alert and oriented x3 HEENT: head is atraumatic normocephalic, eyes pupils equal round reactive to light, sclera clear no conjunctivitis appreciated. Ears blocked by cerumen bilaterally. Nose no septal deviation, nares are clear, no blood present. Mouth mucosa is moist and pink no erythema or exudate noted in soft palate, tongue is midline uvula is midline, dentition is intact. Neck: Supple no thyromegaly no tracheal deviation. Nodes: Cervical nodes subclavicular nodes nontender no palpable lymphadenopathy noted. Lungs: clear to auscultation bilaterally with symmetrical respirations, no adventitious noise appreciated. CV: Regular rate and rhythm S1 and S2 appreciated no murmurs rubs or gallops noted. Tenderness to palpation on the chest wall below the left breast Abdomen: Soft, nontender, no palpable masses or organomegaly appreciated, no distention no guarding bowel sounds are present, . Neuro: Cranial nerves II through XII grossly intact Skin: Warm and dry, intact Extremities: No lower extremity edema appreciated, Course - Vital Signs Last Recorded V/S: Last Vital Signs Temp 95.4 F 11/05/17 08:00 Pulse 82 11/05/17 08:00 Resp 16 11/05/17 08:00 BP 120/75 11/05/17 08:00 Pulse Ox 99 11/05/17 08:00 - Orders/Labs/Meds Orders: Active Orders 24 hr Category Date Time Status Cardiac Monitoring [RC] .As Directed Care 11/05/17 08:10 Active EKG Documentation Completion [RC] ASDIRECTED Care 11/05/17 08:11 Active Chest 2V [CR] Stat Exams 11/05/17 08:11 Taken EKG 12 Lead [EK] Stat Ther 11/05/17 08:11 Ordered Labs: Laboratory Tests 11/05/17 11/05/17 11/05/17 Range/Units 08:15 08:15 08:15 WBC 5.9 (4.5-11.0) K/uL RBC 4.14 (3.30-5.50) M/uL Hgb 11.7 L D (12.0-15.0) g/dL Hct 36.3 (36.0-48.0) % MCV 88 (80-98) fL MCH 28 (27-31) pg MCHC 32 (32-36) % Plt Count 146 L (150-400) K/uL Neut % (Auto) 61 (36-66) % Lymph % (Auto) 22 L (24-44) % [place] % (Auto) 14 H (2-6) % Eos % (Auto) 2 (2-4) % Baso % (Auto) 1 (0-1) % D-Dimer, Quantitative 646 H (0.0-400.0) ng/mL Sodium 136 L (140-148) mmol/L Potassium 3.6 (3.6-5.2) mmol/L Chloride 102 (100-108) mmol/L Carbon Dioxide 27 (21-32) mmol/L Anion Gap 10.6 (5.0-14.0) mmol/L BUN 9 D (7-18) mg/dL Creatinine 0.7 (0.6-1.0) mg/dL Est Cr Clr Drug Dosing 104.53 mL/min Estimated GFR (MDRD) > 60 (>60) Glucose 83 (74-106) mg/dL Calcium 8.5 (8.5-10.1) mg/dL Total Bilirubin 0.9 D (0.2-1.0) mg/dL AST 63 H (15-37) U/L ALT 41 (12-78) U/L Alkaline Phosphatase 72 (46-116) U/L Troponin I < 0.017 (0.000-0.056) ng/mL Total Protein 6.4 (6.4-8.2) g/dL Albumin 3.2 L (3.4-5.0) g/dL Globulin 3.2 (2.3-3.5) g/dL Albumin/Globulin Ratio 1.0 L (1.2-2.2) Lipase 219 (73-393) U/L Meds: Medications Discontinued Medications Generic Name Dose Route Start Last Admin Trade Name Joe PRN Reason Stop Dose Admin Aspirin 324 mg 11/05/17 08:10 11/05/17 08:15 Aspirin PO 11/05/17 08:11 324 mg ONETIME ONE Administration Ketorolac Tromethamine 30 mg 11/05/17 08:11 11/05/17 08:16 Toradol IM 11/05/17 08:12 30 mg ONETIME ONE Administration Morphine Sulfate 2 mg 11/05/17 08:48 11/05/17 08:55 Morphine IVPUSH 11/05/17 08:49 Not Given ONETIME ONE Morphine Sulfate 2 mg 11/05/17 08:53 11/05/17 08:54 Morphine IM 11/05/17 08:54 2 mg ONETIME ONE Administration Departure - Departure Time of Disposition: :27 Disposition: Home, Self-Care 01 Condition: Good Clinical Impression: Atypical chest pain Referrals: Adeola Brunner PA [Primary Care Provider] - Forms: ED Department Discharge Additional Instructions: Use ibuprofen for baseline pain control, use hydrocodone for breakthrough pain, use Flexeril as needed for muscle spasm, Please followup with your primary care provider in 3-5 days if not better, please call return to the emergency department with worsening of symptoms. - My Orders Last 24 Hours: My Active Orders 11/05/17 08:10 Cardiac Monitoring [RC] .As Directed 11/05/17 08:11 EKG Documentation Completion [RC] ASDIRECTED Chest 2V [CR] Stat EKG 12 Lead [EK] Stat - Assessment/Plan Last 24 Hours: My Active Orders 11/05/17 08:10 Cardiac Monitoring [RC] .As Directed 11/05/17 08:11 EKG Documentation Completion [RC] ASDIRECTED Chest 2V [CR] Stat EKG 12 Lead [EK] Stat Plan: Assessment Acuity = acute Site and laterality = atypical chest pain Etiology = unclear etiology possibly muscle skeletal injury Manifestations = pain Location of injury = Home Lab values = CBC, CMP, troponin negative d-dimer is elevated at 646 of uncertain significance however she does have a recent bruising from last night on her lower leg which may be contributing to this. EKG demonstrates a normal sinus rhythm, chest x-ray I did review films myself I cannot appreciate any acute process, the official read from radiology is pending Plan She had minimal relief from the Toradol injection she had good relief from morphine 2 mg IM about options which included further workup of chest CT she elected to do watchful waiting at this time related to combination of ibuprofen, Flexeril 10 mg by mouth 3 times a day when necessary total #15 and hydrocodone 5/325 one tablet by mouth 3 times a day when necessary total #10 however follow-up with her primary care 3-5 days if not better This note was dictated using [employer] voice recognition software please call with any questions on syntax or grammar.
[2017-11-05 08:17] VITALS: BP 120/75
[2017-11-05] MEDS ORDERED: Morphine 2 MG/ML Syringe IVPUSH ONE (08:48)
[2017-11-05] MEDS ORDERED: Morphine 2 MG/ML Syringe IM ONE (08:53)
--- NOTE | 2017-11-05 10:20 | CR ---
CHEST: 2 view CLINICAL HISTORY:Chest pain COMPARISON:2016 FINDINGS: Heart size and pulmonary vascularity are normal. There are atherosclerotic changes in the aorta.. Lung bullock are clear. There are no effusions Impression: No acute cardiopulmonary process
== END 2017-11-05 09:35 | disposition home or self-care (01) ==
LOC: JP.ED 07:45
DX: R07.89 Other chest pain (principal); E66.9 Obesity, unspecified; Z88.2 Allergy status to sulfonamides
CPT/HCPCS: 36415; 71046; 80053; 83690; 84484; 85025; 85379; 93005; 96372; 99285; A9270; J1885; J2270

== ENCOUNTER 2018-09-17 10:03 | Observation (INO) | payer MEDICARE, MEDICAID ==
[2018-09-17] MEDS ORDERED: Ondansetron 4 MG Tab.DIS ONE (10:32)
[2018-09-17] MEDS ORDERED: Ondansetron 4 MG Tab.DIS PO ONE (10:34)
--- NOTE | 2018-09-17 11:23 | EDM.PDOC ---
ED HPI GENERAL MEDICAL PROBLEM - General Chief Complaint: Fever Stated Complaint: HIGH FEVERS, CHILLS/SHIVERING, HEADACHE, VISION Time Seen by Provider: 09/17/18 11:48 Source of Information: Reports: Patient History Limitations: Reports: No Limitations - History of Present Illness INITIAL COMMENTS - FREE TEXT/NARRATIVE: 43 years old female patient presented with a chief complaint of fever 103.8 this morning. Patient stated that 2 days ago she had some drainage from her umbilicus. The next morning on Wednesday she started having some chills and was feeling very cold. This morning she had a temp of 103.8 and she took some Tylenol at home prior to arrival. Complaining of generalized body aches. Mild headache. Denies any cough. Denies any chest pain or shortness breath. Denies any abdominal pain. Denies any diarrhea or constipation. Denies any urinary symptom. Denies any sick contacts. No sore throat or runny nose or congestion. No recent travel. She does not recall any tick bite. No neck pain or stiffness. 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 Musculoskeletal History: Reports: Connective Tissue Disease, Fibromyalgia, Other (See Below) Neurological History: Reports: Migraines Psychiatric History: Reports: Anxiety, Depression, Psych Hospitalization(s), PTSD, Suicidal Ideation Endocrine/Metabolic History: Reports: Obesity/BMI 30+ Hematologic History: Reports: Anemia - Infectious Disease History Infectious Disease History: Reports: Chicken Pox - Past Surgical History HEENT Surgical History: Reports: Tonsillectomy Other HEENT Surgeries/Procedures: adnoids GI Surgical History: Reports: Bariatric Procedure, Cholecystectomy Female Surgical History: Reports: Tubal Ligation, Other (See Below) Musculoskeletal Surgical History: Reports: Joint Replacement, Knee Replacement, Other (See Below) Social & Family History - Family History Family Medical History: Noncontributory - Tobacco Use Smoking Status *Q: Never Smoker - Caffeine Use Caffeine Use: Reports: Coffee, Soda, Tea Other Caffeine Use: not daily ED ROS GENERAL - Review of Systems Review Of Systems: ROS reveals no pertinent complaints other than HPI. ED EXAM, SEPSIS - Physical Exam Exam: See Below Exam Limited By: No Limitations General Appearance: Alert, No Apparent Distress Ears: Normal External Exam Nose: Normal Inspection Throat/Mouth: Normal Inspection, Normal Oropharynx Head: Atraumatic, Normocephalic Neck: Normal Inspection, Supple, Full Range of Motion Respiratory/Chest: No Respiratory Distress, Lungs Clear, Normal Breath Sounds, No Accessory Muscle Use. No: Respiratory Distress, Decreased Breath Sounds, Crackles, Rales, Rhonchi, Wheezing Cardiovascular: Normal Peripheral Pulses, No Murmur, Tachycardia. No: Regular Rate, Rhythm, Bradycardia GI/Abdominal Exam: Normal Bowel Sounds, Soft, Non-Tender, No Organomegaly, No Distention, No Abnormal Bruit, No Mass, Other (Mild erythema umbilicus. No drainage or discharge.) Back: Normal Inspection Extremities: Normal Inspection, Normal Range of Motion, Non-Tender. No: Pedal Edema Neurological: Alert, Oriented, CN II-XII Intact, Normal Cognition, No Motor/ Sensory Deficits Course - Vital Signs Last Recorded V/S: Last Vital Signs Temp 37.8 C 09/17/18 10:27 Pulse 133 H 09/17/18 10:27 Resp 25 H 09/17/18 10:27 BP 137/88 09/17/18 10:27 Pulse Ox 97 09/17/18 10:27 - Orders/Labs/Meds Orders: Active Orders 24 hr Category Date Time Status Cardiac Monitoring [RC] .As Directed Care 09/17/18 11:43 Active BABESIA MICROTI ANTIBODY PANEL Stat Lab 09/17/18 12:46 Received CMV ABS IGG/IGM Stat Lab 09/17/18 12:46 Received CULTURE BLOOD [BC] Urgent Lab 09/17/18 12:00 Received CULTURE BLOOD [BC] Urgent Lab 09/17/18 12:05 Received HUMAN GRANULOCYTIC SONIA-HGE Stat Lab 09/17/18 12:46 Received LYME, TOTAL AB TEST/REFLEX Stat Lab 09/17/18 12:46 Received Doxycycline [Vibramycin] 100 mg Med 09/17/18 13:28 Ordered Sodium Chloride 0.9% [Normal Saline] 100 ml IV ONETIME Blood Culture x2 Reflex Set [OM.PC] Urgent Oth 09/17/18 11:46 Ordered Labs: Laboratory Tests 09/17/18 09/17/18 09/17/18 Range/Units 12:00 12:00 12:00 WBC 10.1 (4.5-11.0) K/uL RBC 4.24 (3.30-5.50) M/uL Hgb 13.5 (12.0-15.0) g/dL Hct 40.7 (36.0-48.0) % MCV 96 (80-98) fL MCH 32 H (27-31) pg MCHC 33 (32-36) % Plt Count 140 L (150-400) K/uL Neut % (Auto) 84 H (36-66) % Lymph % (Auto) 4 L (24-44) % [place] % (Auto) 12 H (2-6) % Eos % (Auto) 0 L (2-4) % Baso % (Auto) 0 (0-1) % ESR 14 (0-25) mm/hr Sodium 136 L (140-148) mmol/L Potassium 3.7 (3.6-5.2) mmol/L Chloride 99 L (100-108) mmol/L Carbon Dioxide 29 (21-32) mmol/L Anion Gap 11.7 (5.0-14.0) mmol/L BUN 5 L (7-18) mg/dL Creatinine 0.6 (0.6-1.0) mg/dL Est Cr Clr Drug Dosing 120.70 mL/min Estimated GFR (MDRD) > 60 (>60) Glucose 88 (74-106) mg/dL Lactic Acid 1.5 (0.4-2.0) mmol/L Calcium 8.2 L (8.5-10.1) mg/dL Total Bilirubin 1.1 H (0.2-1.0) mg/dL AST 44 H (15-37) U/L ALT 28 (12-78) U/L Alkaline Phosphatase 107 (46-116) U/L C-Reactive Protein 3.39 H (0.0-0.3) mg/dL Total Protein 6.6 (6.4-8.2) g/dL Albumin 3.0 L (3.4-5.0) g/dL Globulin 3.6 H (2.3-3.5) g/dL Albumin/Globulin Ratio 0.8 L (1.2-2.2) Urine Color Urine Appearance Urine pH (4.5-8.0) Ur Specific [place] (1.008-1.030) Urine Protein (NEGATIVE) mg/dL Urine Glucose (UA) (NEGATIVE) mg/dL Urine Ketones (NEGATIVE) mg/dL Urine Occult Blood (NEGATIVE) Urine Nitrite (NEGATIVE) Urine Bilirubin (NEGATIVE) Urine Urobilinogen (NORMAL) mg/dL Ur Leukocyte Esterase (NEGATIVE) Urine RBC (0-5) Urine WBC (0-5) Ur Epithelial Cells Amorphous Sediment Urine Bacteria Urine Mucus 09/17/18 Range/Units 12:23 WBC (4.5-11.0) K/uL RBC (3.30-5.50) M/uL Hgb (12.0-15.0) g/dL Hct (36.0-48.0) % MCV (80-98) fL MCH (27-31) pg MCHC (32-36) % Plt Count (150-400) K/uL Neut % (Auto) (36-66) % Lymph % (Auto) (24-44) % [place] % (Auto) (2-6) % Eos % (Auto) (2-4) % Baso % (Auto) (0-1) % ESR (0-25) mm/hr Sodium (140-148) mmol/L Potassium (3.6-5.2) mmol/L Chloride (100-108) mmol/L Carbon Dioxide (21-32) mmol/L Anion Gap (5.0-14.0) mmol/L BUN (7-18) mg/dL Creatinine (0.6-1.0) mg/dL Est Cr Clr Drug Dosing mL/min Estimated GFR (MDRD) (>60) Glucose (74-106) mg/dL Lactic Acid (0.4-2.0) mmol/L Calcium (8.5-10.1) mg/dL Total Bilirubin (0.2-1.0) mg/dL AST (15-37) U/L ALT (12-78) U/L Alkaline Phosphatase (46-116) U/L C-Reactive Protein (0.0-0.3) mg/dL Total Protein (6.4-8.2) g/dL Albumin (3.4-5.0) g/dL Globulin (2.3-3.5) g/dL Albumin/Globulin Ratio (1.2-2.2) Urine Color Yellow Urine Appearance Cloudy Urine pH 5.0 (4.5-8.0) Ur Specific [place] 1.015 (1.008-1.030) Urine Protein Trace (NEGATIVE) mg/dL Urine Glucose (UA) Normal (NEGATIVE) mg/dL Urine Ketones Negative (NEGATIVE) mg/dL Urine Occult Blood Moderate (NEGATIVE) Urine Nitrite Positive H (NEGATIVE) Urine Bilirubin Negative (NEGATIVE) Urine Urobilinogen 1 (NORMAL) mg/dL Ur Leukocyte Esterase Large (NEGATIVE) Urine RBC 10-20 H (0-5) Urine WBC 40-50 H (0-5) Ur Epithelial Cells Few Amorphous Sediment Few Urine Bacteria Many Urine Mucus Few Meds: Medications Discontinued Medications Generic Name Dose Route Start Last Admin Trade Name Freq PRN Reason Stop Dose Admin Sodium Chloride 1,000 mls @ 999 mls/hr 09/17/18 11:47 09/17/18 12:33 Normal Saline IV 09/17/18 12:47 999 mls/hr .BOLUS STA Administration Ketorolac Tromethamine 30 mg 09/17/18 13:12 09/17/18 13:17 Toradol IVPUSH 09/17/18 13:13 30 mg ONETIME ONE Administration Ondansetron HCl 4 mg 09/17/18 10:34 09/17/18 10:35 Zofran Odt PO 09/17/18 10:35 4 mg ONETIME ONE Administration Ondansetron HCl Confirm 09/17/18 10:32 09/17/18 11:46 Zofran Odt Administered 09/17/18 10:33 Not Given Dose 4 mg .ROUTE .STK-MED ONE - Re-Assessments/Exams Free Text/Narrative Re-Assessment/Exam: 09/17/18 12:14 Patient was seen and examined shortly after arrival. Currently afebrile. Given 1 L normal saline bolus. Blood culture drawn. Lab and imaging reviewed patient. Patient had normal white count but she have a left shift. Platelet is low 140. Her AST is mildly elevated. Bilirubin 1.1. Concern about tick borne illness like accuses versus Lyme versus pabesia. Tickborne panel is pending. Also urine shows sign of UTI. She is positive nitrite, by urea and microscopic hematuria. Urine culture has been sent. Patient meets criteria for sepsis. This could be secondary to tick borne illness versus UTI. Started on doxycycline for now. Case was discussed with Dr. Marks hospitalist collision repairer and he accepted admission for further management. Patient was given 1 L normal saline bolus. Blood pressure has been stable. Tachycardia improved. Was given 30 mg IV Toradol for headache. Patient agrees with the plan. Stable for admission. 09/17/18 13:29 Departure - Departure Time of Disposition: 13:32 Disposition: Admitted As Inpatient 65 Condition: Fair Clinical Impression: Tick-borne fever, UTI (urinary tract infection), Sepsis - Discharge Information Referrals: PCP,None [Primary Care Provider] - Forms: ED Department Discharge - My Orders Last 24 Hours: My Active Orders 09/17/18 11:43 Cardiac Monitoring [RC] .As Directed 09/17/18 11:46 Blood Culture x2 Reflex Set [OM.PC] Urgent 09/17/18 12:00 CULTURE BLOOD [BC] Urgent 09/17/18 12:05 CULTURE BLOOD [BC] Urgent 09/17/18 12:46 BABESIA MICROTI ANTIBODY PANEL Stat CMV ABS IGG/IGM Stat HUMAN GRANULOCYTIC SONIA-HGE Stat LYME, TOTAL AB TEST/REFLEX Stat 09/17/18 13:28 Doxycycline [Vibramycin] 100 mg Sodium Chloride 0.9% [Normal Saline] 100 ml IV ONETIME - Assessment/Plan Last 24 Hours: My Active Orders 09/17/18 11:43 Cardiac Monitoring [RC] .As Directed 09/17/18 11:46 Blood Culture x2 Reflex Set [OM.PC] Urgent 09/17/18 12:00 CULTURE BLOOD [BC] Urgent 09/17/18 12:05 CULTURE BLOOD [BC] Urgent 09/17/18 12:46 BABESIA MICROTI ANTIBODY PANEL Stat CMV ABS IGG/IGM Stat HUMAN GRANULOCYTIC SONIA-HGE Stat LYME, TOTAL AB TEST/REFLEX Stat 09/17/18 13:28 Doxycycline [Vibramycin] 100 mg Sodium Chloride 0.9% [Normal Saline] 100 ml IV ONETIME Plan: Admit to Dr. Marks
[2018-09-17] MEDS ORDERED: Sodium Chloride 0.9% 1,000 ML IV STA (11:47)
[2018-09-17] MEDS ORDERED: Ketorolac 30 MG/ML SDV IVPUSH ONE (13:12)
--- NOTE | 2018-09-17 13:15 | CRLCR ---
Indication: Chest pain. Technique: PA and lateral views the chest were obtained. Comparison: November 05, 2017. Findings: Dextroscoliosis of the spine is identified. The heart is normal in size. The lungs are clear. No infiltrate, pleural effusion, or pneumothorax is identified. Impression: No acute cardiopulmonary process. Dictated by Deann Elias MD @ Sep 17 2018 1:13PM Signed by Dr. Deann Elias @ Sep 17 2018 1:14PM
[2018-09-17] MEDS ORDERED: Doxycycline 100 MG in Sodium Chloride 0.9% 100 ML IV ONE (13:28)
--- NOTE | 2018-09-17 13:59 | PCM.HP ---
H&P History of Present Illness - General Date of Service: 09/17/18 Admit Problem/Dx: Admission Diagnosis/Problem Admission Diagnosis/Problem Human anaplasmosis Source of Information: Patient, Provider History Limitations: Reports: No Limitations - History of Present Illness Initial Comments - Free Text/Narative: CC: I feel awful HPI: Gwen presents to the emergency room with 24 hours of generalized headache, diffuse muscle pains, fatigue, anorexia and mild nausea. She had a low-grade fever yesterday and a fever as high as 103 this morning. She feels extremely fatigued and has not had much to eat but she has been doing okay with fluids. She does not have any abdominal pain and has not had diarrhea. She does not endorse dysuria or increased urinary frequency. She's not aware of any sick contacts. She does have potential tick exposures at home because [place] the house and also has outdoor pets. She has not noticed any skin rashes. She did notice some mild drainage from her umbilicus couple of days ago but this has resolved. Workup in the emergency room revealed a normal white blood cell count but thrombocytopenia, mild elevation of bilirubin and AST and moderate suggestion of infection on urinalysis. Chest x-ray was clear. She has received a liter of fluids and will be receiving doxycycline. She is tachycardic but otherwise does not appear septic. Suspicion is for anaplasmosis and the patient will be admitted to initiate antibiotics and for symptom management. - Related Data Allergies/Adverse Reactions: Allergies Allergy/AdvReac Type Severity Reaction Status Date / Time cefaclor [From [facility]] Allergy Hives Verified 09/17/18 10:28 Sulfa (Sulfonamide Allergy Hives Verified 09/17/18 10:28 Antibiotics) Home Medications: Home Meds NK [No Known Home Meds] 09/17/18 [History] Past Medical History Cardiovascular History: Reports: Arrhythmia Genitourinary History: Reports: Pyelonephritis, Other (See Below) Other Genitourinary History: recent pylonephritis [employer] History: Reports: Ectopic , Other OB/BYN History: hvp- leap procedure Musculoskeletal History: Reports: Connective Tissue Disease, Fibromyalgia, Other (See Below) Neurological History: Reports: Migraines Psychiatric History: Reports: Anxiety, Depression, Psych Hospitalization(s), PTSD, Suicidal Ideation Endocrine/Metabolic History: Reports: Obesity/BMI 30+ Hematologic History: Reports: Anemia - Infectious Disease History Infectious Disease History: Reports: Chicken Pox - Past Surgical History HEENT Surgical History: Reports: Tonsillectomy Other HEENT Surgeries/Procedures: adnoids GI Surgical History: Reports: Bariatric Procedure, Cholecystectomy Female Surgical History: Reports: Tubal Ligation, Other (See Below) Musculoskeletal Surgical History: Reports: Joint Replacement, Knee Replacement, Other (See Below) Social & Family History - Family History Family Medical History: Noncontributory - Tobacco Use Smoking Status *Q: Never Smoker - Caffeine Use Caffeine Use: Reports: Coffee, Soda, Tea Other Caffeine Use: not daily - Alcohol Use Alcohol Use History: No H&P Review of Systems - Review of Systems: Review Of Systems: See Below Free Text/Narrative: A complete 12 point review of systems was obtained. Pertinent positives and negatives are noted in the history of present illness. All other systems were reviewed and were negative except as noted. Exam - Exam Exam: See Below - Vital Signs Vital Signs: Last Vital Signs Temp 37.8 C 09/17/18 10:27 Pulse 133 H 09/17/18 10:27 Resp 25 H 09/17/18 10:27 BP 137/88 09/17/18 10:27 Pulse Ox 97 09/17/18 10:27 Weight: 98.7 kg - Exam Quality Assessment: No: Supplemental Oxygen General: Alert, Oriented, Cooperative. No: Mild Distress HEENT: Conjunctiva Clear, Mucosa Moist & [place] Neck: Supple. No: Lymphadenopathy Lungs: Clear to Auscultation, Normal Respiratory Effort Cardiovascular: Regular Rhythm, Tachycardia GI/Abdominal Exam: Soft, No Distention Back Exam: Normal Inspection, Full Range of Motion Extremities: No Pedal Edema. No: Increased Warmth Skin: Warm, Dry Neuro Extensive - Mental Status: Alert, Oriented x3, Nl Response to Commands Neuro Extensive - Motor, Sensory, Reflexes: No: Dysarthria, Abnormal Motor, Tremor Psychiatric: Alert, Normal Affect - Patient Data Lab Results Last 24 hrs: Laboratory Results - last 24 hr 09/17/18 09/17/18 09/17/18 Range/Units 12:00 12:00 12:00 WBC 10.1 (4.5-11.0) K/uL RBC 4.24 (3.30-5.50) M/uL Hgb 13.5 (12.0-15.0) g/dL Hct 40.7 (36.0-48.0) % MCV 96 (80-98) fL MCH 32 H (27-31) pg MCHC 33 (32-36) % Plt Count 140 L (150-400) K/uL Neut % (Auto) 84 H (36-66) % Lymph % (Auto) 4 L (24-44) % [place] % (Auto) 12 H (2-6) % Eos % (Auto) 0 L (2-4) % Baso % (Auto) 0 (0-1) % ESR 14 (0-25) mm/hr Sodium 136 L (140-148) mmol/L Potassium 3.7 (3.6-5.2) mmol/L Chloride 99 L (100-108) mmol/L Carbon Dioxide 29 (21-32) mmol/L Anion Gap 11.7 (5.0-14.0) mmol/L BUN 5 L (7-18) mg/dL Creatinine 0.6 (0.6-1.0) mg/dL Est Cr Clr Drug Dosing 120.70 mL/min Estimated GFR (MDRD) > 60 (>60) Glucose 88 (74-106) mg/dL Lactic Acid 1.5 (0.4-2.0) mmol/L Calcium 8.2 L (8.5-10.1) mg/dL Total Bilirubin 1.1 H (0.2-1.0) mg/dL AST 44 H (15-37) U/L ALT 28 (12-78) U/L Alkaline Phosphatase 107 (46-116) U/L C-Reactive Protein 3.39 H (0.0-0.3) mg/dL Total Protein 6.6 (6.4-8.2) g/dL Albumin 3.0 L (3.4-5.0) g/dL Globulin 3.6 H (2.3-3.5) g/dL Albumin/Globulin Ratio 0.8 L (1.2-2.2) Urine Color Urine Appearance Urine pH (4.5-8.0) Ur Specific [place] (1.008-1.030) Urine Protein (NEGATIVE) mg/dL Urine Glucose (UA) (NEGATIVE) mg/dL Urine Ketones (NEGATIVE) mg/dL Urine Occult Blood (NEGATIVE) Urine Nitrite (NEGATIVE) Urine Bilirubin (NEGATIVE) Urine Urobilinogen (NORMAL) mg/dL Ur Leukocyte Esterase (NEGATIVE) Urine RBC (0-5) Urine WBC (0-5) Ur Epithelial Cells Amorphous Sediment Urine Bacteria Urine Mucus 09/17/18 Range/Units 12:23 WBC (4.5-11.0) K/uL RBC (3.30-5.50) M/uL Hgb (12.0-15.0) g/dL Hct (36.0-48.0) % MCV (80-98) fL MCH (27-31) pg MCHC (32-36) % Plt Count (150-400) K/uL Neut % (Auto) (36-66) % Lymph % (Auto) (24-44) % [place] % (Auto) (2-6) % Eos % (Auto) (2-4) % Baso % (Auto) (0-1) % ESR (0-25) mm/hr Sodium (140-148) mmol/L Potassium (3.6-5.2) mmol/L Chloride (100-108) mmol/L Carbon Dioxide (21-32) mmol/L Anion Gap (5.0-14.0) mmol/L BUN (7-18) mg/dL Creatinine (0.6-1.0) mg/dL Est Cr Clr Drug Dosing mL/min Estimated GFR (MDRD) (>60) Glucose (74-106) mg/dL Lactic Acid (0.4-2.0) mmol/L Calcium (8.5-10.1) mg/dL Total Bilirubin (0.2-1.0) mg/dL AST (15-37) U/L ALT (12-78) U/L Alkaline Phosphatase (46-116) U/L C-Reactive Protein (0.0-0.3) mg/dL Total Protein (6.4-8.2) g/dL Albumin (3.4-5.0) g/dL Globulin (2.3-3.5) g/dL Albumin/Globulin Ratio (1.2-2.2) Urine Color Yellow Urine Appearance Cloudy Urine pH 5.0 (4.5-8.0) Ur Specific [place] 1.015 (1.008-1.030) Urine Protein Trace (NEGATIVE) mg/dL Urine Glucose (UA) Normal (NEGATIVE) mg/dL Urine Ketones Negative (NEGATIVE) mg/dL Urine Occult Blood Moderate (NEGATIVE) Urine Nitrite Positive H (NEGATIVE) Urine Bilirubin Negative (NEGATIVE) Urine Urobilinogen 1 (NORMAL) mg/dL Ur Leukocyte Esterase Large (NEGATIVE) Urine RBC 10-20 H (0-5) Urine WBC 40-50 H (0-5) Ur Epithelial Cells Few Amorphous Sediment Few Urine Bacteria Many Urine Mucus Few Result Diagrams: 09/17/18 12:00 09/17/18 12:00 Imaging Impressions Last 24 hrs: CXR - images personally reviewed - lungs are clear with no mass, infiltrate or effusion *Q Meaningful Use (ADM) - VTE Risk Assess *Q Each Risk Factor Represents 1 Point: Age 41 - 59 years, Obesity ( BMI > 25 kg/m2 ) Total Score 1 Point Risk Factors: 2 Each Risk Factor Represents 2 Points: None Total Score 2 Point Risk Factors: 0 Each Risk Factor Represents 3 Points: None Total Score 3 Point Risk Factors: 0 Each Risk Factor Represents 5 Points: None Total Score 5 Point Risk Factors: 0 Venous Thromboembolism Risk Factor Score *Q: 2 - Problem List (1) Human anaplasmosis SNOMED Code(s): 285931890 ICD Code: A77.49 - OTHER EHRLICHIOSIS Status: Acute Current Visit: Yes Problem List Initiated/Reviewed/Updated: Yes Orders Last 24hrs: Active Orders 24 hr Category Date Time Status Patient Status Manage Transfer [TRANSFER] Routine ADT 09/17/18 13:53 Ordered Cardiac Monitoring [RC] .As Directed Care 09/17/18 11:43 Active BABESIA MICROTI ANTIBODY PANEL Stat Lab 09/17/18 12:46 Received CMV ABS IGG/IGM Stat Lab 09/17/18 12:46 Received CULTURE BLOOD [BC] Urgent Lab 09/17/18 12:00 Received CULTURE BLOOD [BC] Urgent Lab 09/17/18 12:05 Received HUMAN GRANULOCYTIC SONIA-HGE Stat Lab 09/17/18 12:46 Received LYME, TOTAL AB TEST/REFLEX Stat Lab 09/17/18 12:46 Received Doxycycline [Vibramycin] 100 mg Med 09/17/18 13:28 Active Sodium Chloride 0.9% [Normal Saline] 100 ml IV ONETIME Blood Culture x2 Reflex Set [OM.PC] Urgent Oth 09/17/18 11:46 Ordered Resuscitation Status Routine Resus Stat 09/17/18 13:54 Ordered Medication Orders Doxycycline Hyclate 100 mg/ (Sodium Chloride) 100 mls @ 100 mls/hr IV ONETIME ONE Stop: 09/17/18 14:27 Last Admin: 09/17/18 13:56 Dose: 100 mls/hr Assessment/Plan Comment:: ASSESSMENT AND PLAN - Acute anaplasmosis, suspected - Potential for tick exposure and symptoms as well as most laboratory studies would fit very nicely with anaplasmosis. White blood cell count is normal however. Peripheral smear slide reviewed and there are no obvious babesiosis organisms. Anaplasmosis strongly suspected. Urine moderately suggestive of infection but the patient does not have symptoms of a urinary tract infection and normally does when she has one of those infections. -Doxycycline -IV fluids -Symptomatically management -Follow-up titers for tick borne disease Maintenance issues - - DVT prophylaxis - patient will be ambulatory - GI prophylaxis - not indicated - Nutrition - regular - Delgado catheter - not indicated CODE STATUS - full code Admission justification - patient will be referred to observation status for hydration and symptomatic management Disposition - I would anticipate discharge home after the hospital stay Primary care physician - Cheryl Marks M.D.
[2018-09-17] MEDS ORDERED: Ondansetron 4 MG/2 ML SDV IV PRN (15:13)
[2018-09-17] MEDS ORDERED: Ondansetron 4 MG Tab.DIS PO PRN (15:13)
[2018-09-17] MEDS: Acetaminophen 325 MG Tab PO PRN ×2 (16:03→20:51)
[2018-09-17] MEDS: Ibuprofen 600 MG Tab PO PRN ×2 (16:03→21:50)
[2018-09-17] MEDS: Sodium Chloride 0.9% 1,000 ML IV SCH (16:04)
[2018-09-17] MEDS: oxyCODONE 5 MG Tab PO PRN (17:59)
[2018-09-17] MEDS ORDERED: Sodium Chloride 0.9% 1,000 ML IV ONE (19:57)
[2018-09-18] MEDS: Acetaminophen 325 MG Tab PO PRN ×2 (00:51→13:58)
[2018-09-18] MEDS: oxyCODONE 5 MG Tab PO PRN ×2 (00:51→17:20)
[2018-09-18] MEDS: Doxycycline 100 MG in Sodium Chloride 0.9% 100 ML IV SCH ×2 (01:00→13:55)
[2018-09-18] MEDS: Sodium Chloride 0.9% 1,000 ML IV SCH ×2 (02:24→07:46)
[2018-09-18] MEDS ORDERED: Sodium Chloride 0.9% 1,000 ML IV ONE (04:34)
[2018-09-18] MEDS ORDERED: Calcium Carbonate 500 MG Tab.Chew PO PRN (04:34)
[2018-09-18] MEDS ORDERED: Sodium Chloride 0.9% 500 ML IV ONE (04:42)
[2018-09-18] MEDS: Ibuprofen 600 MG Tab PO PRN ×3 (05:08→22:24)
[2018-09-18] MEDS: LORazepam 2 MG/ML SDV IVPUSH PRN ×2 (05:26→22:25)
[2018-09-18] MEDS ORDERED: Potassium Chloride 20 MEQ in Premix Bag 1 BAG IV ONE (05:42)
[2018-09-18] MEDS ORDERED: Potassium Chloride 20 MEQ Tab.ER PO ONE ×2 (05:42→14:45)
[2018-09-18] MEDS ORDERED: Potassium Chloride 100 ML ONE (05:55)
--- NOTE | 2018-09-18 11:11 | PCM.PN ---
- General Info Date of Service: 09/18/18 Subjective Update: Overnight the patient had difficulty with fever as well as some epigastric chest discomfort. Pain was worse with deep breathing. Pain is better this morning but has not completely resolved. No nausea or vomiting. Blood pressures were on the low side and she did require several fluid challenges. Temperatures and blood pressures are better this morning but blood pressure does remain on the low side. White blood cell count is slightly higher today and platelets are slightly lower. Potassium has dropped overnight down to 2.6. Clinically the patient is feeling better with a decreased but not resolution in her headache. She feels weak and tired but less so than yesterday. Functional Status: Reports: Pain Controlled, Tolerating Diet - Review of Systems General: Reports: Fever Gastrointestinal: Reports: Abdominal Pain (epigastric) - Patient Data Vitals - Most Recent: Last Vital Signs Temp 36.7 C 09/18/18 07:00 Pulse 95 09/18/18 07:00 Resp 18 09/18/18 07:00 BP 104/61 09/18/18 07:00 Pulse Ox 99 09/18/18 07:00 Weight - Most Recent: 98.7 kg I&O - Last 24 Hours: Intake & Output 09/17/18 09/18/18 09/18/18 22:59 06:59 14:59 Intake Total 190 2581 Output Total 270 950 250 Balance -80 1631 -250 Lab Results Last 24 Hours: Laboratory Results - last 24 hr 09/17/18 09/17/18 09/17/18 Range/Units 12:00 12:00 12:00 WBC 10.1 (4.5-11.0) K/uL RBC 4.24 (3.30-5.50) M/uL Hgb 13.5 (12.0-15.0) g/dL Hct 40.7 (36.0-48.0) % MCV 96 (80-98) fL MCH 32 H (27-31) pg MCHC 33 (32-36) % Plt Count 140 L (150-400) K/uL Neut % (Auto) 84 H (36-66) % Lymph % (Auto) 4 L (24-44) % [place] % (Auto) 12 H (2-6) % Eos % (Auto) 0 L (2-4) % Baso % (Auto) 0 (0-1) % ESR 14 (0-25) mm/hr Sodium 136 L (140-148) mmol/L Potassium 3.7 (3.6-5.2) mmol/L Chloride 99 L (100-108) mmol/L Carbon Dioxide 29 (21-32) mmol/L Anion Gap 11.7 (5.0-14.0) mmol/L BUN 5 L (7-18) mg/dL Creatinine 0.6 (0.6-1.0) mg/dL Est Cr Clr Drug Dosing 120.70 mL/min Estimated GFR (MDRD) > 60 (>60) Glucose 88 (74-106) mg/dL Lactic Acid 1.5 (0.4-2.0) mmol/L Calcium 8.2 L (8.5-10.1) mg/dL Total Bilirubin 1.1 H (0.2-1.0) mg/dL AST 44 H (15-37) U/L ALT 28 (12-78) U/L Alkaline Phosphatase 107 (46-116) U/L C-Reactive Protein 3.39 H (0.0-0.3) mg/dL Total Protein 6.6 (6.4-8.2) g/dL Albumin 3.0 L (3.4-5.0) g/dL Globulin 3.6 H (2.3-3.5) g/dL Albumin/Globulin Ratio 0.8 L (1.2-2.2) Urine Color Urine Appearance Urine pH (4.5-8.0) Ur Specific [place] (1.008-1.030) Urine Protein (NEGATIVE) mg/dL Urine Glucose (UA) (NEGATIVE) mg/dL Urine Ketones (NEGATIVE) mg/dL Urine Occult Blood (NEGATIVE) Urine Nitrite (NEGATIVE) Urine Bilirubin (NEGATIVE) Urine Urobilinogen (NORMAL) mg/dL Ur Leukocyte Esterase (NEGATIVE) Urine RBC (0-5) Urine WBC (0-5) Ur Epithelial Cells Amorphous Sediment Urine Bacteria Urine Mucus 09/17/18 09/18/18 09/18/18 Range/Units 12:23 04:59 04:59 WBC 12.9 H (4.5-11.0) K/uL RBC 3.70 (3.30-5.50) M/uL Hgb 11.7 L (12.0-15.0) g/dL Hct 36.5 (36.0-48.0) % MCV 99 H (80-98) fL MCH 32 H (27-31) pg MCHC 32 (32-36) % Plt Count 107 L (150-400) K/uL Neut % (Auto) (36-66) % Lymph % (Auto) (24-44) % [place] % (Auto) (2-6) % Eos % (Auto) (2-4) % Baso % (Auto) (0-1) % ESR (0-25) mm/hr Sodium 138 L (140-148) mmol/L Potassium 2.6 L* (3.6-5.2) mmol/L Chloride 103 (100-108) mmol/L Carbon Dioxide 23 (21-32) mmol/L Anion Gap 14.6 H (5.0-14.0) mmol/L BUN 8 D (7-18) mg/dL Creatinine 0.8 (0.6-1.0) mg/dL Est Cr Clr Drug Dosing 90.88 mL/min Estimated GFR (MDRD) > 60 (>60) Glucose 84 (74-106) mg/dL Lactic Acid (0.4-2.0) mmol/L Calcium 6.9 L* D (8.5-10.1) mg/dL Total Bilirubin 1.2 H (0.2-1.0) mg/dL AST 86 H D (15-37) U/L ALT 28 (12-78) U/L Alkaline Phosphatase 78 (46-116) U/L C-Reactive Protein (0.0-0.3) mg/dL Total Protein 4.8 L (6.4-8.2) g/dL Albumin 2.0 L (3.4-5.0) g/dL Globulin 2.8 (2.3-3.5) g/dL Albumin/Globulin Ratio 0.7 L (1.2-2.2) Urine Color Yellow Urine Appearance Cloudy Urine pH 5.0 (4.5-8.0) Ur Specific [place] 1.015 (1.008-1.030) Urine Protein Trace (NEGATIVE) mg/dL Urine Glucose (UA) Normal (NEGATIVE) mg/dL Urine Ketones Negative (NEGATIVE) mg/dL Urine Occult Blood Moderate (NEGATIVE) Urine Nitrite Positive H (NEGATIVE) Urine Bilirubin Negative (NEGATIVE) Urine Urobilinogen 1 (NORMAL) mg/dL Ur Leukocyte Esterase Large (NEGATIVE) Urine RBC 10-20 H (0-5) Urine WBC 40-50 H (0-5) Ur Epithelial Cells Few Amorphous Sediment Few Urine Bacteria Many Urine Mucus Few Med Orders - Current: Current Medications Acetaminophen (Tylenol) 650 mg PO Q4H PRN PRN Reason: Pain (Mild 1-3)/fever Last Admin: 09/18/18 00:51 Dose: 650 mg Calcium Carbonate/Glycine (Tums) 1,000 mg PO Q2H PRN PRN Reason: Indigestion Doxycycline Hyclate 100 mg/ (Sodium Chloride) 100 mls @ 100 mls/hr IV Q12H ANDRE Last Admin: 09/18/18 01:00 Dose: 100 mls/hr Ibuprofen (Motrin) 600 mg PO Q6H PRN PRN Reason: Pain/Fever Last Admin: 09/18/18 05:08 Dose: 600 mg Lorazepam (Ativan) 0.5 mg IVPUSH Q4H PRN PRN Reason: Anxiety Last Admin: 09/18/18 05:26 Dose: 0.5 mg Ondansetron HCl (Zofran Odt) 4 mg PO Q6H PRN PRN Reason: Nausea able to take PO Ondansetron HCl (Zofran) 4 mg IV Q6H PRN PRN Reason: Nausea/Vomiting Oxycodone HCl (Oxycodone) 5 mg PO Q4H PRN PRN Reason: Pain (moderate 4-6) Last Admin: 09/18/18 00:51 Dose: 5 mg Senna/Docusate Sodium (Senna Plus) 1 tab PO BID PRN PRN Reason: Constipation Discontinued Medications Sodium Chloride (Normal Saline) 1,000 mls @ 999 mls/hr IV .BOLUS STA Stop: 09/17/18 12:47 Last Admin: 09/17/18 12:33 Dose: 999 mls/hr Doxycycline Hyclate 100 mg/ (Sodium Chloride) 100 mls @ 100 mls/hr IV ONETIME ONE Stop: 09/17/18 14:27 Last Admin: 09/17/18 13:56 Dose: 100 mls/hr Sodium Chloride (Normal Saline) 1,000 mls @ 125 mls/hr IV ASDIRECTED [facility] Last Admin: 09/18/18 07:46 Dose: 125 mls/hr Sodium Chloride (Normal Saline) 1,000 mls @ 999 mls/hr IV .BOLUS ONE Stop: 09/17/18 20:57 Last Admin: 09/17/18 20:30 Dose: 999 mls/hr Sodium Chloride (Normal Saline) 1,000 mls @ 500 mls/hr IV .BOLUS ONE Stop: 09/18/18 06:33 Last Admin: 09/18/18 05:26 Dose: Not Given Sodium Chloride (Normal Saline) 500 mls @ 500 mls/hr IV .BOLUS ONE Stop: 09/18/18 05:33 Last Admin: 09/18/18 04:43 Dose: 500 mls/hr Potassium Chloride 20 meq/ (Premix) 100 mls @ 50 mls/hr IV ONETIME ONE Stop: 09/18/18 07:41 Last Admin: 09/18/18 06:07 Dose: 50 mls/hr Potassium Chloride (Kcl 20 Meq In Water 100 Ml) Confirm Administered Dose 100 mls @ as directed .ROUTE .STK-MED ONE Stop: 09/18/18 05:56 Last Admin: 09/18/18 06:07 Dose: Not Given Ketorolac Tromethamine (Toradol) 30 mg IVPUSH ONETIME ONE Stop: 09/17/18 13:13 Last Admin: 09/17/18 13:17 Dose: 30 mg Lidocaine HCl (Xylocaine-Mpf 1%) 2 ml INJECT ONETIME ONE Stop: 09/18/18 05:47 Last Admin: 09/18/18 06:07 Dose: 2 ml Ondansetron HCl (Zofran Odt) 4 mg PO ONETIME ONE Stop: 09/17/18 10:35 Last Admin: 09/17/18 10:35 Dose: 4 mg Ondansetron HCl (Zofran Odt) Confirm Administered Dose 4 mg .ROUTE .STK-MED ONE Stop: 09/17/18 10:33 Last Admin: 09/17/18 11:46 Dose: Not Given Potassium Chloride (Klor-Con M20) 40 meq PO ONETIME ONE Stop: 09/18/18 05:43 Last Admin: 09/18/18 07:43 Dose: 40 meq - Exam Quality Assessment: No: Supplemental Oxygen General: Alert, Oriented, Cooperative, No Acute Distress Lungs: Clear to Auscultation, Normal Respiratory Effort Cardiovascular: Regular Rate, Regular Rhythm GI/Abdominal Exam: Normal Bowel Sounds, Soft, Tender (mild epigastric ) Extremities: No Pedal Edema Psy/Mental Status: Alert, Normal Affect - Problem List & Annotations (1) Human anaplasmosis SNOMED Code(s): 682697434 Code(s): A77.49 - OTHER EHRLICHIOSIS Status: Acute Current Visit: Yes - Problem List Review Problem List Initiated/Reviewed/Updated: Yes - My Orders Last 24 Hours: My Active Orders 09/17/18 13:54 Resuscitation Status Routine 09/17/18 15:13 Patient Status [ADT] Routine Intake and Output [RC] Q12H Notify Provider Vital Signs [RC] ASDIRECTED Oxygen Therapy [RC] PRN Up ad [place] [RC] ASDIRECTED VTE/DVT Education [RC] Per Unit Routine Vital Signs [RC] Q4H Acetaminophen [Tylenol] 650 mg PO Q4H PRN Docusate Sodium/Sennosides [Senna Plus] 1 tab PO BID PRN Ibuprofen [Motrin] 600 mg PO Q6H PRN Ondansetron [Zofran ODT] 4 mg PO Q6H PRN Ondansetron [Zofran] 4 mg IV Q6H PRN 09/17/18 17:49 oxyCODONE 5 mg PO Q4H PRN 09/17/18 Lunch Regular Diet [DIET] 09/18/18 02:00 Doxycycline [Vibramycin] 100 mg Sodium Chloride 0.9% [Normal Saline] 100 ml IV Q12H 09/18/18 04:34 Calcium Carbonate [Tums] 1,000 mg PO Q2H PRN LORazepam [Ativan] 0.5 mg IVPUSH Q4H PRN 09/18/18 11:15 Sodium Chloride 0.9% [Normal Saline] 1,000 ml IV ASDIRECTED 09/18/18 14:00 POTASSIUM,K [CHEM] Timed 09/19/18 05:00 CBC W/O DIFF,HEMOGRAM [HEME] Timed (1) COMPREHENSIVE METABOLIC PN,CMP [CHEM] Timed - Plan Plan:: ASSESSMENT AND PLAN - Acute anaplasmosis, suspected - Potential for tick exposure and symptoms as well as most laboratory studies would fit very nicely with anaplasmosis. White blood cell count slightly higher but platelets are lower. Symptomatically little better but still having some fevers. -Doxycycline for total of 21 days -Continue gentle IV fluids -Symptomatically management -Follow-up titers for tick borne disease sent from emergency room Profound hypokalemia - probably combination of poor intake and dilution. -Replace this morning and recheck this afternoon Maintenance issues - - DVT prophylaxis - patient will be ambulatory - GI prophylaxis - not indicated - Nutrition - regular Admission justification - patient will be referred to observation status for hydration and symptomatic management Disposition - I would anticipate discharge home after the hospital stay, hopefully tomorrow if stable overnight and potassium improves Primary care physician - Cheryl Marks M.D.
[2018-09-18] MEDS ORDERED: Sodium Chloride 0.9% 1,000 ML IV SCH (11:15)
[2018-09-19] MEDS: Doxycycline 100 MG in Sodium Chloride 0.9% 100 ML IV SCH ×2 (02:22→13:53)
[2018-09-19] MEDS: Ibuprofen 600 MG Tab PO PRN (05:15)
[2018-09-19] MEDS: oxyCODONE 5 MG Tab PO PRN (07:28)
[2018-09-19] MEDS: Acetaminophen 325 MG Tab PO PRN ×2 (07:28→18:06)
[2018-09-19] MEDS: Levofloxacin/Dextrose 5%-Water 500 MG in Premix Bag 1 BAG IV SCH (11:01)
--- NOTE | 2018-09-19 12:26 | PCM.PN ---
- General Info Date of Service: 09/19/18 Admission Dx/Problem (Free Text): Admission Diagnosis/Problem Admission Diagnosis/Problem Human anaplasmosis Subjective Update: Did spike a fever last night 100.6, but this morning she states she feels better than when she was admitted, no difficulty breathing no chest pain no nausea vomiting denies any urinary symptoms. Review of current labs show a suspicious urine consistent with urinary tract infection culture is pending. She is tolerating diet and ambulating Functional Status: Reports: Pain Controlled - Review of Systems General: Reports: Fever Pulmonary: Reports: No Symptoms Cardiovascular: Reports: No Symptoms Gastrointestinal: Reports: No Symptoms - Patient Data Vitals - Most Recent: Last Vital Signs Temp 99 F 09/19/18 11:15 Pulse 68 09/19/18 11:15 Resp 16 09/19/18 11:15 BP 90/58 L 09/19/18 11:15 Pulse Ox 97 09/19/18 11:15 Weight - Most Recent: 98.7 kg I&O - Last 24 Hours: Intake & Output 09/18/18 09/19/18 09/19/18 22:59 06:59 14:59 Intake Total 900 2910 340 Output Total 700 900 450 Balance 200 2009 Lab Results Last 24 Hours: Laboratory Results - last 24 hr 09/18/18 09/19/18 09/19/18 Range/Units 13:53 04:30 04:30 WBC 11.3 H (4.5-11.0) K/uL RBC 3.46 (3.30-5.50) M/uL Hgb 11.0 L (12.0-15.0) g/dL Hct 34.4 L (36.0-48.0) % MCV 99 H (80-98) fL MCH 32 H (27-31) pg MCHC 32 (32-36) % Plt Count 115 L (150-400) K/uL Sodium 140 (140-148) mmol/L Potassium 3.3 L 3.3 L (3.6-5.2) mmol/L Chloride 108 (100-108) mmol/L Carbon Dioxide 23 (21-32) mmol/L Anion Gap 12.3 (5.0-14.0) mmol/L BUN 7 (7-18) mg/dL Creatinine 0.5 L (0.6-1.0) mg/dL Est Cr Clr Drug Dosing 145.41 mL/min Estimated GFR (MDRD) > 60 (>60) Glucose 73 L (74-106) mg/dL Calcium 7.0 L (8.5-10.1) mg/dL Total Bilirubin 0.6 (0.2-1.0) mg/dL AST 39 H (15-37) U/L ALT 23 (12-78) U/L Alkaline Phosphatase 73 (46-116) U/L Total Protein 4.5 L (6.4-8.2) g/dL Albumin 1.8 L (3.4-5.0) g/dL Globulin 2.7 (2.3-3.5) g/dL Albumin/Globulin Ratio 0.7 L (1.2-2.2) Willian Results Last 24 Hours: Microbiology 09/17/18 12:05 Aerobic Blood Culture - Preliminary Blood - Venous NO GROWTH AFTER 2 DAYS Anaerobic Blood Culture - Preliminary NO GROWTH AFTER 2 DAYS 09/17/18 12:00 Aerobic Blood Culture - Preliminary Blood - Venous - Lab Draw NO GROWTH AFTER 2 DAYS Anaerobic Blood Culture - Preliminary NO GROWTH AFTER 2 DAYS Med Orders - Current: Current Medications Acetaminophen (Tylenol) 650 mg PO Q4H PRN PRN Reason: Pain (Mild 1-3)/fever Last Admin: 09/19/18 07:28 Dose: 650 mg Calcium Carbonate/Glycine (Tums) 1,000 mg PO Q2H PRN PRN Reason: Indigestion Last Admin: 09/18/18 22:24 Dose: 1,000 mg Doxycycline Hyclate 100 mg/ (Sodium Chloride) 100 mls @ 100 mls/hr IV Q12H [facility] Last Admin: 09/19/18 02:22 Dose: 100 mls/hr Levofloxacin/Dextrose 500 mg/ (Premix) 100 mls @ 100 mls/hr IV Q24H [facility] Last Admin: 09/19/18 11:01 Dose: 100 mls/hr Ibuprofen (Motrin) 600 mg PO Q6H PRN PRN Reason: Pain/Fever Last Admin: 09/19/18 05:15 Dose: 600 mg Lorazepam (Ativan) 0.5 mg IVPUSH Q4H PRN PRN Reason: Anxiety Last Admin: 09/18/18 22:25 Dose: 0.5 mg Ondansetron HCl (Zofran Odt) 4 mg PO Q6H PRN PRN Reason: Nausea able to take PO Ondansetron HCl (Zofran) 4 mg IV Q6H PRN PRN Reason: Nausea/Vomiting Oxycodone HCl (Oxycodone) 5 mg PO Q4H PRN PRN Reason: Pain (moderate 4-6) Last Admin: 09/19/18 07:28 Dose: 5 mg Potassium Chloride (Klor-Con M20) 40 meq PO ONETIME ONE Stop: 09/19/18 12:18 Senna/Docusate Sodium (Senna Plus) 1 tab PO BID PRN PRN Reason: Constipation Discontinued Medications Sodium Chloride (Normal Saline) 1,000 mls @ 999 mls/hr IV .BOLUS STA Stop: 09/17/18 12:47 Last Admin: 09/17/18 12:33 Dose: 999 mls/hr Doxycycline Hyclate 100 mg/ (Sodium Chloride) 100 mls @ 100 mls/hr IV ONETIME ONE Stop: 09/17/18 14:27 Last Admin: 09/17/18 13:56 Dose: 100 mls/hr Sodium Chloride (Normal Saline) 1,000 mls @ 125 mls/hr IV ASDIRECTED ANDRE Last Admin: 09/18/18 07:46 Dose: 125 mls/hr Sodium Chloride (Normal Saline) 1,000 mls @ 999 mls/hr IV .BOLUS ONE Stop: 09/17/18 20:57 Last Admin: 09/17/18 20:30 Dose: 999 mls/hr Sodium Chloride (Normal Saline) 1,000 mls @ 500 mls/hr IV .BOLUS ONE Stop: 09/18/18 06:33 Last Admin: 09/18/18 05:26 Dose: Not Given Sodium Chloride (Normal Saline) 500 mls @ 500 mls/hr IV .BOLUS ONE Stop: 09/18/18 05:33 Last Admin: 09/18/18 04:43 Dose: 500 mls/hr Potassium Chloride 20 meq/ (Premix) 100 mls @ 50 mls/hr IV ONETIME ONE Stop: 09/18/18 07:41 Last Admin: 09/18/18 06:07 Dose: 50 mls/hr Potassium Chloride (Kcl 20 Meq In Water 100 Ml) Confirm Administered Dose 100 mls @ as directed .ROUTE .STK-MED ONE Stop: 09/18/18 05:56 Last Admin: 09/18/18 06:07 Dose: Not Given Sodium Chloride (Normal Saline) 1,000 mls @ 75 mls/hr IV ASDIRECTED ANDRE Ketorolac Tromethamine (Toradol) 30 mg IVPUSH ONETIME ONE Stop: 09/17/18 13:13 Last Admin: 09/17/18 13:17 Dose: 30 mg Lidocaine HCl (Xylocaine-Mpf 1%) 2 ml INJECT ONETIME ONE Stop: 09/18/18 05:47 Last Admin: 09/18/18 06:07 Dose: 2 ml Ondansetron HCl (Zofran Odt) 4 mg PO ONETIME ONE Stop: 09/17/18 10:35 Last Admin: 09/17/18 10:35 Dose: 4 mg Ondansetron HCl (Zofran Odt) Confirm Administered Dose 4 mg .ROUTE .STK-MED ONE Stop: 09/17/18 10:33 Last Admin: 09/17/18 11:46 Dose: Not Given Potassium Chloride (Klor-Con M20) 40 meq PO ONETIME ONE Stop: 09/18/18 05:43 Last Admin: 09/18/18 07:43 Dose: 40 meq Potassium Chloride (Klor-Con M20) 40 meq PO ONETIME ONE Stop: 09/18/18 14:46 Last Admin: 09/18/18 14:50 Dose: 40 meq - Exam General: Alert, Oriented HEENT: Pupils Equal Lungs: Clear to Auscultation, Normal Respiratory Effort Cardiovascular: Regular Rate, Regular Rhythm GI/Abdominal Exam: Soft, Non-Tender Extremities: No Pedal Edema - Problem List & Annotations (1) Human anaplasmosis SNOMED Code(s): 216370286 Code(s): A77.49 - OTHER EHRLICHIOSIS Status: Acute Priority: High Current Visit: Yes (2) Tick-borne fever SNOMED Code(s): 11472027 Code(s): A93.8 - OTHER SPECIFIED ARTHROPOD-BORNE VIRAL FEVERS Status: Acute Priority: High Current Visit: Yes (3) UTI (urinary tract infection) SNOMED Code(s): 27804400 Code(s): N39.0 - URINARY TRACT INFECTION, SITE NOT SPECIFIED Status: Acute Priority: High Current Visit: Yes Qualifiers: Urinary tract infection type: acute cystitis Hematuria presence: with hematuria Qualified Code(s): N30.01 - Acute cystitis with hematuria - Problem List Review Problem List Initiated/Reviewed/Updated: Yes - My Orders Last 24 Hours: My Active Orders 09/19/18 09:09 CULTURE URINE [RM] Routine 09/19/18 10:00 Levofloxacin/Dextrose 5%-Water [Levaquin in D5W 500 MG/100 ML] 500 mg Premix Bag 1 bag IV Q24H 09/19/18 12:17 Potassium Chloride [Klor-Con M20] 40 meq PO ONETIME ONE 09/20/18 05:11 BASIC METABOLIC PANEL,BMP [CHEM] AM - Plan Plan:: ASSESSMENT AND PLAN - Acute anaplasmosis, suspected - Potential for tick exposure and symptoms as well as most laboratory studies would fit very nicely with anaplasmosis. White blood cell count slightly higher but platelets are lower. Symptomatically little better but still having some fevers. -Doxycycline for total of 21 days -Will DC IV fluids today -Symptomatically management -Follow-up titers for tick borne disease sent from emergency room Profound hypokalemia - probably combination of poor intake and dilution. -Potassium 3.3 we will add by mouth supplementation Urinary tract infection acute cystitis with hematuria -Culture is pending -And antibiotics of Levaquin due to allergies Maintenance issues - - DVT prophylaxis - patient will be ambulatory - GI prophylaxis - not indicated - Nutrition - regular Admission justification - patient will be referred to observation status for hydration and symptomatic management Disposition - plan for discharge in the morning Primary care physician - Cheryl Mason M.D.
[2018-09-19] MEDS ORDERED: Potassium Chloride 20 MEQ Tab.ER PO ONE (13:00)
[2018-09-20] MEDS: Doxycycline 100 MG in Sodium Chloride 0.9% 100 ML IV SCH (02:25)
[2018-09-20] MEDS: Acetaminophen 325 MG Tab PO PRN (02:35)
[2018-09-20 07:03] VITALS: BP 119/82; PULSE 79
[2018-09-20] MEDS: Ibuprofen 600 MG Tab PO PRN (07:07)
--- NOTE | 2018-09-20 09:50 | PCM.DCSUM1 ---
Discharge Summary - Hospital Course Free Text/Narrative:: 43-year-old female admitted to the emergency department for suspected tickborne illness, she has continued to improve with IV antibiotics of doxycycline, also suspicious for urinary tract infection based on laboratory results however she had no urinary symptoms culture is still pending. She did receive 2 doses of levofloxacin for her urinary tract infection. - Discharge Data Discharge Date: 09/20/18 Discharge Disposition: Home, Self-Care 01 Condition: Good - Discharge Diagnosis/Problem(s) (1) Human anaplasmosis SNOMED Code(s): 257712956 ICD Code: A77.49 - OTHER EHRLICHIOSIS Status: Acute Priority: High Current Visit: Yes (2) Tick-borne fever SNOMED Code(s): 55213988 ICD Code: A93.8 - OTHER SPECIFIED ARTHROPOD-BORNE VIRAL FEVERS Status: Acute Priority: High Current Visit: Yes (3) UTI (urinary tract infection) SNOMED Code(s): 41488268 ICD Code: N39.0 - URINARY TRACT INFECTION, SITE NOT SPECIFIED Status: Acute Priority: High Current Visit: Yes Qualifiers: Urinary tract infection type: acute cystitis Hematuria presence: with hematuria Qualified Code(s): N30.01 - Acute cystitis with hematuria - Patient Instructions Diet: Regular Diet as Tolerated Driving: May Drive Today - Discharge Plan Home Medications: Home Meds Doxycycline Monohydrate 100 mg PO BID #28 capsule 09/20/18 [Rx] Oxygen Therapy Mode: Room Air Patient Handouts: Antibiotic Medicine, Adult, [id number], Urinary Tract Infection, Adult Forms: ED Department Discharge Referrals: PCP,None [Primary Care Provider] - - Discharge Summary/Plan Comment DC Time >30 min.: No Discharge Summary/Plan Comment: ASSESSMENT AND PLAN Tickborne illness-did receive IV antibiotics of doxycycline while in the hospital plan is to continue the doxycycline for 14 days on 100 milligrams by mouth twice a day Urinary tract infection- urinalysis was consistent with urinary tract infection was placed on Levaquin 2 days however she has never displayed any urinary symptoms and the culture is pending DISPOSITION - she will be discharged to home with prescriptions for doxycycline faxed to [facility] pharmacy she will follow-up with her primary care in the next 3-5 days if no improvement Geovanni Officer - General Info Date of Service: 09/20/18 Admission Dx/Problem (Free Text: Admission Diagnosis/Problem Admission Diagnosis/Problem Human anaplasmosis Subjective Update: Temperature up to 100.1 last night, she states she feels back to her normal self she's eating and drinking okay she is ambulating and feels she is ready to be discharged to home. Functional Status: Reports: Pain Controlled - Review of Systems General: Reports: No Symptoms Pulmonary: Reports: No Symptoms Cardiovascular: Reports: No Symptoms Gastrointestinal: Reports: No Symptoms - Patient Data Vitals - Most Recent: Last Vital Signs Temp 99.1 F 09/20/18 07:02 Pulse 79 09/20/18 07:02 Resp 18 09/20/18 07:02 BP 119/82 09/20/18 07:02 Pulse Ox 99 09/20/18 07:02 Weight - Most Recent: 98.7 kg I&O - Last 24 hours: Intake & Output 09/19/18 09/20/18 09/20/18 22:59 06:59 14:59 Intake Total 800 100 Output Total 1450 1500 Balance -650 -1400 Lab Results - Last 24 hrs: Laboratory Results - last 24 hr 09/20/18 Range/Units 04:45 Sodium 141 (140-148) mmol/L Potassium 3.4 L (3.6-5.2) mmol/L Chloride 108 (100-108) mmol/L Carbon Dioxide 25 (21-32) mmol/L Anion Gap 11.4 (5.0-14.0) mmol/L BUN 5 L (7-18) mg/dL Creatinine 0.6 (0.6-1.0) mg/dL Est Cr Clr Drug Dosing 121.18 mL/min Estimated GFR (MDRD) > 60 (>60) Glucose 76 (74-106) mg/dL Calcium 7.2 L (8.5-10.1) mg/dL DONNIE Results - Last 24 hrs: Microbiology 09/17/18 12:05 Aerobic Blood Culture - Preliminary Blood - Venous NO GROWTH AFTER 2 DAYS Anaerobic Blood Culture - Preliminary NO GROWTH AFTER 2 DAYS 09/17/18 12:00 Aerobic Blood Culture - Preliminary Blood - Venous - Lab Draw NO GROWTH AFTER 2 DAYS Anaerobic Blood Culture - Preliminary NO GROWTH AFTER 2 DAYS Med Orders - Current: Current Medications Acetaminophen (Tylenol) 650 mg PO Q4H PRN PRN Reason: Pain (Mild 1-3)/fever Last Admin: 09/20/18 02:35 Dose: 650 mg Calcium Carbonate/Glycine (Tums) 1,000 mg PO Q2H PRN PRN Reason: Indigestion Last Admin: 09/18/18 22:24 Dose: 1,000 mg Doxycycline Hyclate 100 mg/ (Sodium Chloride) 100 mls @ 100 mls/hr IV Q12H [facility] Last Admin: 09/20/18 02:25 Dose: 100 mls/hr Levofloxacin/Dextrose 500 mg/ (Premix) 100 mls @ 100 mls/hr IV Q24H [facility] Last Admin: 09/19/18 11:01 Dose: 100 mls/hr Ibuprofen (Motrin) 600 mg PO Q6H PRN PRN Reason: Pain/Fever Last Admin: 09/20/18 07:07 Dose: 600 mg Lorazepam (Ativan) 0.5 mg IVPUSH Q4H PRN PRN Reason: Anxiety Last Admin: 09/18/18 22:25 Dose: 0.5 mg Ondansetron HCl (Zofran Odt) 4 mg PO Q6H PRN PRN Reason: Nausea able to take PO Ondansetron HCl (Zofran) 4 mg IV Q6H PRN PRN Reason: Nausea/Vomiting Oxycodone HCl (Oxycodone) 5 mg PO Q4H PRN PRN Reason: Pain (moderate 4-6) Last Admin: 09/19/18 07:28 Dose: 5 mg Senna/Docusate Sodium (Senna Plus) 1 tab PO BID PRN PRN Reason: Constipation Discontinued Medications Sodium Chloride (Normal Saline) 1,000 mls @ 999 mls/hr IV .BOLUS STA Stop: 09/17/18 12:47 Last Admin: 09/17/18 12:33 Dose: 999 mls/hr Doxycycline Hyclate 100 mg/ (Sodium Chloride) 100 mls @ 100 mls/hr IV ONETIME ONE Stop: 09/17/18 14:27 Last Admin: 09/17/18 13:56 Dose: 100 mls/hr Sodium Chloride (Normal Saline) 1,000 mls @ 125 mls/hr IV ASDIRECTED [facility] Last Admin: 09/18/18 07:46 Dose: 125 mls/hr Sodium Chloride (Normal Saline) 1,000 mls @ 999 mls/hr IV .BOLUS ONE Stop: 09/17/18 20:57 Last Admin: 09/17/18 20:30 Dose: 999 mls/hr Sodium Chloride (Normal Saline) 1,000 mls @ 500 mls/hr IV .BOLUS ONE Stop: 09/18/18 06:33 Last Admin: 09/18/18 05:26 Dose: Not Given Sodium Chloride (Normal Saline) 500 mls @ 500 mls/hr IV .BOLUS ONE Stop: 09/18/18 05:33 Last Admin: 09/18/18 04:43 Dose: 500 mls/hr Potassium Chloride 20 meq/ (Premix) 100 mls @ 50 mls/hr IV ONETIME ONE Stop: 09/18/18 07:41 Last Admin: 09/18/18 06:07 Dose: 50 mls/hr Potassium Chloride (Kcl 20 Meq In Water 100 Ml) Confirm Administered Dose 100 mls @ as directed .ROUTE .STK-MED ONE Stop: 09/18/18 05:56 Last Admin: 09/18/18 06:07 Dose: Not Given Sodium Chloride (Normal Saline) 1,000 mls @ 75 mls/hr IV ASDIRECTED [facility] Ketorolac Tromethamine (Toradol) 30 mg IVPUSH ONETIME ONE Stop: 09/17/18 13:13 Last Admin: 09/17/18 13:17 Dose: 30 mg Lidocaine HCl (Xylocaine-Mpf 1%) 2 ml INJECT ONETIME ONE Stop: 09/18/18 05:47 Last Admin: 09/18/18 06:07 Dose: 2 ml Ondansetron HCl (Zofran Odt) 4 mg PO ONETIME ONE Stop: 09/17/18 10:35 Last Admin: 09/17/18 10:35 Dose: 4 mg Ondansetron HCl (Zofran Odt) Confirm Administered Dose 4 mg .ROUTE .STK-MED ONE Stop: 09/17/18 10:33 Last Admin: 09/17/18 11:46 Dose: Not Given Potassium Chloride (Klor-Con M20) 40 meq PO ONETIME ONE Stop: 09/18/18 05:43 Last Admin: 09/18/18 07:43 Dose: 40 meq Potassium Chloride (Klor-Con M20) 40 meq PO ONETIME ONE Stop: 09/18/18 14:46 Last Admin: 09/18/18 14:50 Dose: 40 meq Potassium Chloride (Klor-Con M20) 40 meq PO ONETIME ONE Stop: 09/19/18 13:01 Last Admin: 09/19/18 13:53 Dose: 40 meq - Exam General: Reports: Alert, Oriented HEENT: Reports: Pupils Equal Neck: Reports: Supple Lungs: Reports: Clear to Auscultation, Normal Respiratory Effort Cardiovascular: Reports: Regular Rate, Regular Rhythm GI/Abdominal Exam: Soft, Non-Tender Extremities: Normal Inspection, No Pedal Edema
[2018-09-20] MEDS: Levofloxacin/Dextrose 5%-Water 500 MG in Premix Bag 1 BAG IV SCH (10:07)
[2018-09-21 09:09] LABS: LYME IGG/IGM AB <0.91 ISR (0.00-0.90)
[2018-09-21 13:20] LABS: HGE IGG TITER Negative (Neg:<1:64); HGE IGM TITER Negative (Neg:<1:20)
[2018-09-22 14:09] LABS: BABESIA MICROTI IGG <1:10 (Neg:<1:10); BABESIA MICROTI IGM <1:10 (Neg:<1:10)
== END 2018-09-20 12:30 | disposition home or self-care (01) ==
LOC: JP.ED 10:03 → JP.2SS 13:53
PROVIDERS: ADMIT Internal Medicine; ATTEND Internal Medicine
DX: A77.49 Other ehrlichiosis (principal); A93.8 Other specified arthropod-borne viral fevers; N30.01 Acute cystitis with hematuria; E87.6 Hypokalemia; Z88.1 Allergy status to other antibiotic agents; Z88.2 Allergy status to sulfonamides
CPT/HCPCS: 36415; 71046; 80048; 80053; 81001; 83605; 84132; 85025; 85027; 85651; 86140; 86618; 86644; 86645; 86666; 86753; 87040; 96361; 96374; 99284; A9270; J1885; J1956; J2001; J2060; J3480; J3490; J7030; 96365; 96366; 96367; 96375; 96376; 99285; G0378

== ENCOUNTER 2019-06-09 19:34 | Emergency (ER) | payer MEDICARE, MEDICAID ==
[2019-06-09 19:45] VITALS: BP 128/84; PULSE 85
--- NOTE | 2019-06-09 20:02 | EDM.PDOC ---
ED HPI GENERAL MEDICAL PROBLEM - General Chief Complaint: Chest Pain Stated Complaint: CHEST PAIN Time Seen by Provider: 06/09/19 19:52 Source of Information: Reports: Patient History Limitations: Reports: No Limitations - History of Present Illness INITIAL COMMENTS - FREE TEXT/NARRATIVE: Patient presents for evaluation of chest pain and upper abdominal pain with nausea and vomiting beginning a couple of hours earlier this afternoon. The pain in her chest she describes as heavy. The pain in the abdomen is of burning stabbing pain. No shortness of breath. She's had nausea and dry heaves but no actual emesis. She has been drinking vodka regularly over the last 3 days after a two-week period of sobriety. She hasn't had anything to eat today. She did have some sips of water earlier and that helped the discomfort slightly but because of lack of improvement she came in at this time. Onset: Today Duration: Hour(s): (Two) Location: Reports: Chest, Abdomen Quality: Reports: Ache, Burning Severity: Moderate Improves with: Reports: None Worsens with: Reports: Movement Context: Reports: Other (Recent 3 day episode of vodka consumption, approximately one half bottle per day.) Associated Symptoms: Reports: Nausea/Vomiting epigastric Pain Score (Numeric/FACES): 7 - Related Data Allergies Allergy/AdvReac Type Severity Reaction Status Date / Time cefaclor [From Ceclor] Allergy Hives Verified 06/09/19 19:42 Sulfa (Sulfonamide Allergy Hives Verified 06/09/19 19:42 Antibiotics) Home Meds: Home Meds NK [No Known Home Meds] 10/24/18 [History] Past Medical History HEENT History: Reports: None Cardiovascular History: Reports: Arrhythmia Gastrointestinal History: Reports: None Genitourinary History: Reports: Pyelonephritis Other Genitourinary History: recent pylonephritis PORTABLE TRACK CREW CHIEF History: Reports: Ectopic , Other PORTABLE TRACK CREW CHIEF History: hvp- leap procedure Musculoskeletal History: Reports: Connective Tissue Disease, Fibromyalgia, Other (See Below) Neurological History: Reports: Migraines Psychiatric History: Reports: Anxiety, Depression, Psych Hospitalization(s), PTSD, Suicide Attempt, Suicidal Ideation Endocrine/Metabolic History: Reports: Obesity/BMI 30+ Hematologic History: Reports: Anemia - Infectious Disease History Infectious Disease History: Reports: Chicken Pox - Past Surgical History Head Surgeries/Procedures: Reports: None HEENT Surgical History: Reports: Adenoidectomy, Tonsillectomy GI Surgical History: Reports: Bariatric Procedure, Cholecystectomy Female Surgical History: Reports: Tubal Ligation, Other (See Below) Musculoskeletal Surgical History: Reports: Joint Replacement, Knee Replacement, Other (See Below) Dermatological Surgical History: Reports: None Social & Family History - Family History Family Medical History: Noncontributory - Tobacco Use Smoking Status *Q: Never Smoker - Caffeine Use Caffeine Use: Reports: None Other Caffeine Use: not daily - Alcohol Use Days Per Week of Alcohol Use: 3 Number of Drinks Per Day: 7 Total Drinks Per Week: 21 - Recreational Drug Use Recreational Drug Use: No ED ROS GENERAL - Review of Systems Review Of Systems: See Below Constitutional: Denies: Fever, Chills HEENT: Reports: No Symptoms Respiratory: Reports: No Symptoms Cardiovascular: Reports: No Symptoms GI/Abdominal: Reports: Abdominal Pain, Nausea. Denies: Black Stool (Epigastric region), Difficulty Swallowing, Melena, Vomiting ED EXAM, GENERAL - Physical Exam Exam: See Below Free Text/Narrative:: This is an uncomfortable-appearing female sitting up in the bed when I enter holding an emesis bag in front of her. Exam Limited By: No Limitations General Appearance: Alert, Moderate Distress Neck: Normal Inspection Respiratory/Chest: No Respiratory Distress, Lungs Clear Cardiovascular: Regular Rate, Rhythm GI/Abdominal: Soft, Tender (Diffuse epigastric pain.) Back Exam: Normal Inspection Extremities: Normal Inspection Neurological: Alert Psychiatric: Anxious, Tearful Skin Exam: Warm Lymphatic: No Adenopathy EKG INTERPRETATION EKG Date: 06/09/19 Time: 19:40 Rhythm: NSR Rate (Beats/Min): 85 Malin: Normal P-Wave: Present QRS: Normal ST-T: Normal QT: Normal Course - Vital Signs Last Recorded V/S: Last Vital Signs Temp 37.0 C 06/09/19 19:43 Pulse 85 06/09/19 19:43 Resp 20 06/09/19 19:43 BP 128/84 06/09/19 19:43 Pulse Ox 99 06/09/19 19:43 - Orders/Labs/Meds Orders: Active Orders 24 hr Category Date Time Status EKG Documentation Completion [RC] ASDIRECTED Care 06/09/19 20:05 Ordered Saline Lock Insert [OM.PC] Routine Oth 06/09/19 20:04 Ordered EKG 12 Lead [EK] Routine Ther 06/09/19 20:05 Ordered Labs: Laboratory Tests 06/09/19 06/09/19 Range/Units 20:18 20:18 WBC 8.4 (4.5-11.0) K/uL RBC 4.22 (3.30-5.50) M/uL Hgb 13.7 (12.0-15.0) g/dL Hct 41.9 (36.0-48.0) % MCV 99 H (80-98) fL MCH 33 H (27-31) pg MCHC 33 (32-36) % Plt Count 263 (150-400) K/uL Neut % (Auto) 69 H (36-66) % Lymph % (Auto) 21 L (24-44) % [place] % (Auto) 10 H (2-6) % Eos % (Auto) 0 L (2-4) % Baso % (Auto) 1 (0-1) % Sodium 136 L (140-148) mmol/L Potassium 4.1 (3.6-5.2) mmol/L Chloride 98 L (100-108) mmol/L Carbon Dioxide 25 (21-32) mmol/L Anion Gap 17.1 H (5.0-14.0) mmol/L BUN 9 (7-18) mg/dL Creatinine 0.5 L (0.6-1.0) mg/dL Est Cr Clr Drug Dosing 144.84 mL/min Estimated GFR (MDRD) > 60 (>60) Glucose 94 (74-106) mg/dL Calcium 9.2 (8.5-10.1) mg/dL Total Bilirubin 1.1 H (0.2-1.0) mg/dL AST 106 H (15-37) U/L ALT 77 D (12-78) U/L Alkaline Phosphatase 106 (46-116) U/L Troponin I < 0.017 (0.000-0.056) ng/mL Total Protein 7.5 (6.4-8.2) g/dL Albumin 3.9 (3.4-5.0) g/dL Globulin 3.6 H (2.3-3.5) g/dL Albumin/Globulin Ratio 1.1 L (1.2-2.2) Lipase 130 (73-393) U/L Meds: Medications Discontinued Medications Generic Name Dose Route Start Last Admin Trade Name Joe PRN Reason Stop Dose Admin Al Hydroxide/Mg Hydroxide 15 0 ml 06/09/19 20:03 06/09/19 20:20 ml/ Lidocaine HCl 15 ml PO 06/09/19 20:04 30 ml ONETIME ONE Administration Lactated Ringer's 1,000 mls @ 999 mls/hr 06/09/19 20:04 06/09/19 20:20 Ringers, Lactated IV 06/09/19 21:04 999 mls/hr BOLUS ONE Administration Ondansetron HCl 4 mg 06/09/19 20:03 06/09/19 20:20 Zofran IVPUSH 06/09/19 20:04 4 mg ONETIME ONE Administration Sodium Chloride 10 ml 06/09/19 20:04 06/09/19 20:20 Saline Flush FLUSH 10 ml ASDIRECTED PRN Administration Keep Vein Open - Re-Assessments/Exams Free Text/Narrative Re-Assessment/Exam: 06/09/19 20:10 Patient will receive 1 L of lactated Ringer's wide open along with ondansetron 4 mg IV and a GI cocktail. EKG shows no acute ischemic or infarction changes. This was discussed with the patient. 06/09/19 22:23 I returned later to review test results which show some macrocytosis of red blood cells along with liver enzyme changes but nothing alarming. She did have improvement in discomfort following the GI cocktail although she definitely did not care for the taste. She believes she still has some Prilosec at home. I recommend not drinking alcohol and she is aware of the need to avoid that. She can restart the Prilosec and take it regularly for 1 month. I recommend she get one of the liquid antacid acids and take that as instructed for burning stomach discomfort. She should eat small amounts frequently to help reduce GI tract irritation. Hopefully symptoms will settle down over the next several days. Return to ER if feeling worse. Departure - Departure Time of Disposition: 22:24 Disposition: Home, Self-Care 01 Clinical Impression: Atypical chest pain Abdominal pain Qualifiers: Abdominal location: epigastric Qualified Code(s): R10.13 - Epigastric pain Gastritis due to alcohol without hemorrhage Qualifiers: Chronicity: acute Qualified Code(s): K29.20 - Alcoholic gastritis without bleeding Instructions: Gastritis, Adult, [id number], Nonspecific Chest Pain, Adult, Abdominal Pain, Adult, [id number] Referrals: PCP,None [Primary Care Provider] - Forms: ED Department Discharge Additional Instructions: I recommend not drinking alcohol. Using Tylenol 1000 mg 3 times a day for pain is reasonable. I do not recommend using Advil or Aleve at this time because of stomach irritation. If you still have Prilosec at home, I recommend restarting that and taking it every day for one month. Also pick remover some liquid antacid such as Maalox and when you have a burning feeling, drink to 3 or 4 tablespoons at a time to help quench the fire. It will be helpful but you will need to take it more frequently than Prilosec or things like that. Recheck with primary care as needed. Return to ER if feeling worse in anyway. Sepsis Event Note - Evaluation Sepsis Screening Result: No Definite Risk - Focused Exam Vital Signs: Vital Signs Temp Pulse Resp BP Pulse Ox 06/09/19 19:43 37.0 C 85 20 128/84 99 Date Exam was Performed: 06/09/19 Time Exam was Performed: 22:22 - My Orders Last 24 Hours: My Active Orders 06/09/19 20:04 Saline Lock Insert [OM.PC] Routine 06/09/19 20:05 EKG Documentation Completion [RC] ASDIRECTED EKG 12 Lead [EK] Routine - Assessment/Plan Last 24 Hours: My Active Orders 06/09/19 20:04 Saline Lock Insert [OM.PC] Routine 06/09/19 20:05 EKG Documentation Completion [RC] ASDIRECTED EKG 12 Lead [EK] Routine
[2019-06-09] MEDS ORDERED: Alum Hydrox/Mag Hydrox/Simeth 15 ML, Lidocaine 2% 15 ML PO ONE ×2 (20:03)
[2019-06-09] MEDS ORDERED: Ondansetron 4 MG/2 ML SDV IVPUSH ONE (20:03)
[2019-06-09] MEDS ORDERED: Sodium Chloride 0.9% 10 ML Syringe FLUSH PRN (20:04)
[2019-06-09] MEDS ORDERED: Lactated Ringers 1,000 ML IV ONE (20:04)
== END 2019-06-09 22:06 | disposition home or self-care (01) ==
LOC: JP.ED 19:34
DX: K29.20 Alcoholic gastritis without bleeding (principal); R07.89 Other chest pain; E66.9 Obesity, unspecified; Z68.28 Body mass index [BMI] 28.0-28.9, adult; Z88.1 Allergy status to other antibiotic agents; Z88.2 Allergy status to sulfonamides
CPT/HCPCS: 36415; 80053; 83690; 84484; 85025; 93005; 96361; 96374; 99285; A9270; J2405; J7120; 99284